=== PATIENT | female | born 1990 | race Caucasian/White ===

== ENCOUNTER 2017-02-22 00:11 | Inpatient (IN) | payer OTHER ==
[~2017-02-22] VITALS: Ht 154.9 cm; Wt 66.9 kg
--- NOTE | 2017-02-22 00:24 | ED PSYCHIATRIC COMPLAINT ---
History of Present Illness General Chief Complaint: Psychiatric Related Complaint Stated Complaint: PSYCH EVAL Source: patient, family, EMS Exam Limitations: no limitations Vital Signs & Intake/Output Vital Signs & Intake/Output Vital Signs Date Time Temp Pulse Resp B/P B/P Pulse O2 O2 Flow FiO2 Mean Ox Delivery Rate 02/23 0839 98.6 103 20 134/86 98 02/23 0622 97.8 98 16 142/88 98 02/23 0143 98.2 100 20 132/65 98 Room Air 02/22 2238 98.5 108 18 148/88 98 Room Air 02/22 2026 98.6 104 20 130/80 97 Room Air 02/22 1825 98.2 80 20 128/87 98 Room Air 02/22 1632 98.0 92 20 136/88 98 Room Air 02/22 1406 97.9 98 18 141/90 98 Room Air 02/22 1207 98.4 100 18 151/81 99 Room Air ED Intake and Output 02/23 0000 02/22 1200 Intake Total Output Total Balance Patient 160 lb Weight Weight Estimated Measurement Method Allergies Coded Allergies: MDX - Amoxicillin (AMOXICILLIN) (11/29/10) MDX - Sulfamethoxazole (From BACTRIM) (11/29/10) MDX - Trimethoprim (From BACTRIM) (11/29/10) Triage Note: TRIAGE: BIBA FROM HOME W/ MOTHER (PT LIVES W/ MOM) REPORTING MED NON-COMPLIANT X1 MONTH (ABILIFY AND LAMICTAL). PATIENT HX BIPOLAR, FRANCISCO, PSYCHOSIS. +AH/VH. WHEN ASKED ABOUT SI/HI, PATIENT REPORTS "NOT ON PURPOSE." PATIENT MOM REPORTS "SHE IS TOTALLY MANIC AND HASNM'T SLEPT OR EATEN IN 3 DAYS." PATIENT VERY ANXIOUS THROUGHOUT TRIAGE, ANSWERING FEW RN QUESTIONS, PARANOID, DISTRACTED, FLIGHT OF IDEAS. SECURITY TO BEDSIDE FOR WANDING. Triage Nurses Notes Reviewed? yes : No Patient currently breastfeeds: No HPI: Patient has been off of her medications for the past 4 weeks. Patient is becoming more manic. Patient was brought in by ambulance after her group social worker decided that she needed evaluation. Patient will answer questions if she is suicidal or homicidal. Patient. Now in left ear during the history. Patient not answering questions. Patient is responding to internal stimuli. (Ravi BOWEN,Sascha Rose) Past History Travel History Traveled to [place] past 21 day No Medical History Any Pertinent Medical History? see below for history Neurological: NONE EENT: NONE Cardiovascular: NONE Respiratory: NONE Gastrointestinal: NONE Hepatic: NONE Renal: NONE Musculoskeletal: NONE Psychiatric: anxiety, bipolar disease, psychosis Endocrine: NONE Blood Disorders: NONE Cancer(s): NONE PORTER SAMPLE CASE/Reproductive: NONE Surgical History Surgical History: non-contributory Psychosocial History What is your primary language Greenlandic Tobacco Use: Refused to answer ETOH Use: 6 Illicit Drug Use: UTD Family History Hx Contributory? No (Ravi BOWEN,Sascha Rose) Review of Systems Review of Systems Constitutional: Reports: see HPI. Neurological/Psychological: Reports: see HPI. (Ravi BOWEN,Sascha Rose) Physical Exam Physical Exam General Appearance: well developed/nourished, alert, anxious, moderate distress Head: atraumatic Eyes: Bilateral: PERRL, EOMI. Ears, Nose, Throat: normal pharynx, normal ENT inspection, hearing grossly normal Neck: normal inspection, supple, full range of motion Respiratory: normal breath sounds, chest non-tender, no respiratory distress, lungs clear Cardiovascular: regular rate/rhythm, normal peripheral pulses Gastrointestinal: normal bowel sounds, soft, non-tender Extremities: normal range of motion Neurological/Psychiatric: no motor/sensory deficits, awake, alert Appearance/Memory/Insight: disheveled, impaired insight Behavoir/Eye Contact/Speech: avoids eye contact, increased rate of speech Thoughts/Hallucinations: RESPONIDIDNG TO INTERNAL STIMULAE SAD PERSONS Done? CRISIS CONSULT OBTAINED (Ravi BOWEN,Sascha Rose) Progress Differential Diagnosis: drug intoxication, drug overdose, drug withdrawal, electrolyte abnormality Plan of Care: Laboratory Tests 02/22/17 1014: Urine Opiates Screen < 100.00, Methadone Screen 61, Barbiturate Screen < 60, Ur Phencyclidine Scrn < 6.00, Amphetamines Screen < 100, U Benzodiazepines Scrn < 85, Urine Cocaine Screen < 50, Urine Cannabis Screen < 5.00 3:15 PM PATIENT SIGNED OUT TO ME BY DR GUTHRIE, PENDING CRISIS BED SEARCH. (Zion BOWEN,Chelo) Hand-Off Endorsed To: Jaylon Guthrie MD Endorsed Time: 0700 Pending: consult (Ravi BOWEN,Sascha Rose) Comments: 02/22/2017 8:53:32 AM patient signed out to me by Dr. Rodrigues at shift private branch exchange service adviser. Patient is resting comfortably at this time. 02/22/2017 3:25:15 PM patient signed out to Dr. Donovan at shift private branch exchange service adviser. 02/23/2017 9:03:19 AM patient signed out to me by Dr. Negrete at shift private branch exchange service adviser. Patient is currently resting comfortably. (Jerri BOWEN,Jaylon Mazariegos) Hand-Off Endorsed To: Colby Negrete MD Endorsed Time: 2300 Pending: other (CRISIS BED PLACEMENT) (Zion BOWEN,Chelo) Hand-Off Endorsed To: Jaylon Guthrie MD Endorsed Time: 0700 Pending: other (Caden BOWEN,Colby Ivey) Departure Departure Disposition: STILL A PATIENT Condition: Stable Clinical Impression Primary Impression: Psychosis Referrals: Velma Roberts MD (PCP/Family) Departure Forms: Customer Survey General Discharge Information (Sascha Rodrigues MD) Departure Forms: Customer Survey General Discharge Information (Sascha Rodrigues MD)
[2017-02-22 01:32] LABS: ABSOLUTE BASOPHIL COUNT 0 /CUMM (0.0-0.2); ABSOLUTE EOSINOPHIL COUNT 0.1 /CUMM (0.0-0.7); ABSOLUTE GRANULOCYTE CT 11.3 /CUMM (1.4-6.5); ABSOLUTE LYMPH COUNT 2.2 /CUMM (1.2-3.4); ABSOLUTE MONOCYTE COUNT 0.7 /CUMM (0.10-0.60); BASOPHIL % 0.2 % (0.0-2.0); EOSINOPHIL % 0.5 % (0-5); GRANULOCYTE % 79.3 % (42.2-75.2); MEAN CORPUSCULAR HGB 28.6 PG (27.0-31.0); MEAN CORPUSCULAR HGB CONC 33.9 G/DL (33.0-37.0); MEAN CORPUSCULAR VOLUME 84.4 FL (81.0-99.0); MEAN PLATELET VOLUME 7.1 FL (7.4-10.4); PLATELET COUNT 349 /CUMM (130-400); RBC DISTRIBUTION WIDTH 12.2 % (11.5-14.5); RED BLOOD CELL CT 4.97 /CUMM (4.20-5.40); WHITE BLOOD CELL COUNT 14.3 /CUMM (4.8-10.8)
[2017-02-22 01:52] LABS: LITHIUM < 0.2 mmol/L (0.6-1.2)
--- NOTE | 2017-02-22 13:15 | ED PSYCH CRISIS CONSULTATION ---
Crisis Consult Basic Assessment Date of Consult: 02/22/17 Responsible Person/Accompanied By: NIGHTMAN Emergency Transportation paper Insurance Authorization: Insurance #1: Insurance name: [facility] Phone number: Policy number: [id number] Group [id number] Authorization number: ED Provider: Patient's ED Provider: Ravi BOWEN,Sascha Rose Primary Care Physician: Patient's PCP: Velma Roberts MD PCP's Current Psychiatrist: None Chief Complaint: Psychiatric Related Complaint Patient's Quote: " Oh boy, alot of stuff." Present Illness: The patient is a 27 year single female presenting to the ED on an [facility] Emergency Transportation Certificate, after stopping her medications and decompensating. The patient presents disheveled, unkempt, with mood lability and incongruent affect. The patient made inappropriate facial expressions throughout the evaluation and made sounds that were unintelligible. She appeared to be a poor historian and gave minimal answers to questions asked. The patient continually repeated that she was scared and wanted to be safe, however was not able to articulate what she was scared of. She denied having any auditory or visual hallucinations, however did appear to be responding to internal stimuli and laughing inappropriately at times. She then went on to say "she just inherently knows things," however does not elaborate on what she knows. She stated that she believes that her mother is the devil and that she talks with God and that God talks back to her. She states that God tells her to do things, however "it is never anything bad, God is trying to help everyone." She denies any current thoughts to hurt herself or anyone else. She talks about feeling out of control and that she believes she is possessed at times, noting "holograms are real." She states that she is not in any treatment and is not on any medications, because at [facility] they helped her to manage symptoms without medications. She denies any current drug or alcohol abuse, however does admit to a history of using Cocaine and Marijuana. She has had multiple treatment episodes, including inpatient and outpatient. She was last in OP treatment at [place] in Summer / fall and was admitted to [facility] in January of 2017. She does not know what would be helpful and states "I'm tired, I'm sacred and I don't know what to do." JOSETTE spoke to Nelly Guadarrama ([phone]) from [facility] for collateral information. Nelly reports that she has been working with the patient for awhile now and is familiar with her case. Nelly states that the patient has a differential of Bipolar with Psychosis vs. a Delusional Disorder. Nelly reports that the patient does very well when she is on her medications, however frequently stops them and ends up being admitted to the hospital. Nelly notes that she has been admitted to [place] and [facility] (3-4 times), in the past. Nelly reports that the patient has never made any suicidal comments or attempts, as far as she is aware. Nelly reports that the patient was admitted to [facility] in January 2017 and had a positive toxicology screen for Cocaine , however that was the first time, to her knowledge. A message was left for the patients mother, Christy George ([phone]) and SW will await a call back. Patient's Address: [address] [place] [address] Other Phone Number: Who Do You Live With? Mother Family/Informants Interviewed: OP therapist Nelly Sampson Message left for her mother, Christy George ([phone]) Allergies - Coded Allergies: MDX - Amoxicillin (AMOXICILLIN) (11/29/10) MDX - Sulfamethoxazole (From BACTRIM) (11/29/10) MDX - Trimethoprim (From BACTRIM) (11/29/10) Laboratory Results: Laboratory Tests 02/22/17 1014: Urine Opiates Screen < 100.00, Methadone Screen 61, Barbiturate Screen < 60, Ur Phencyclidine Scrn < 6.00, Amphetamines Screen < 100, U Benzodiazepines Scrn < 85, Urine Cocaine Screen < 50, Urine Cannabis Screen < 5.00 02/22/17 0120: Anion Gap 17 H, Estimated GFR > 60, BUN/Creatinine Ratio 36.7 H, Glucose 94, Calcium 9.7, Total Bilirubin 0.8, AST 20, ALT 37, Alkaline Phosphatase 61, Total Protein 6.8, Albumin 4.3, Globulin 2.5, Albumin/Globulin Ratio 1.7, Total Beta HCG NEGATIVE, CBC w Diff NO MAN DIFF REQ, RBC 4.97, MCV 84.4, MCH 28.6, RDW 12.2 , MPV 7.1 L, Gran % 79.3 H, Lymphocytes % 15.1 L, Monocytes % 4.9, Eosinophils % 0.5, Basophils % 0.2, Absolute Granulocytes 11.3 H, Absolute Lymphocytes 2.2, Absolute Monocytes 0.7 H, Absolute Eosinophils 0.1, Absolute Basophils 0, PUBS MCHC 33.9, [place] < 0.2 L, Serum Alcohol < 10.0 Past History Past Medical History Neurological: NONE EENT: NONE Cardiovascular: NONE Respiratory: NONE Gastrointestinal: NONE Hepatic: NONE Renal: NONE Musculoskeletal: NONE Psychiatric: anxiety, bipolar disease, psychosis Endocrine: NONE Blood Disorders: NONE Cancer(s): NONE LITERARY WRITER/Reproductive: NONE Past Surgical History Surgical History: non-contributory Psychosocial History Strengths/Capabilities: The patient resides with her mother and apparently does do very well when she is on her medications. Physical Limitations (Interventions): None noted Psychiatric Treatment History Psych Treatment Psychiatric Treatment Yes Inpatient Treatment Yes Outpatient Treatment Yes Location of Treatment [facility] IOP and OP Reason for Treatment Bipolar Disorder with Psychosis vs. Delusional Disorder Dates of [facility] Summer / Fall 2016, Last IP at [facility] January 2017 Response to Treatment The patient frequently stops her medications and requires hospitalization. Diagnosis by History: Bipolar Disorder with Psychosis Vs. Delusional Disorder Substance Use/Abuse History Drug Use/Abuse Substances Used/Abused Yes Substance Used/Abused Cocaine First Use Unclear Last Used January 2017 How much used/taken Unclear How often Unclear For how long Unclear Route of use Unclear Substance Abuse Treatment Substance Abuse Treatment Past Substance Abuse TX Yes Inpatient Treatment No Outpatient Treatment Yes Location of Treatment [facility] OP Reason for Treatment Marijuana use Dates of Treatment Last IOP / OP September 2016 Response to Treatment Unclear Comments: N/A Current Mental Status Mental Status Orientation: Confused Affect: Inappropriate, Labile Speech: Incoherent (at times), Mumbled Neuro-vegetative: Appetite Decreased, Sleep Disturbance Appearance Appearance- Dress/Hygiene: The patient was disheveled, unkempt, with inappropriate facial expressions and making unintelligible sounds. Behaviors Thought Process: Disorganized, Flight of Ideas, Irrational, Loose Association, Thought Blocking Thought Content: Delusions, Ideas of Reference, Sikhism, The patient denies any current auditory or visual hallucinations, however states that "she inherently knows things." She reports rastafarian delusions, noting that she talks to God and he talks back. She believes that her mother is the devil. She reports that she does feel out of control and possessed at times. Memory: Impaired (Poor Historian- Psychosis) Insight: Fair SI/HI Risk Assessment Past Suicidal Ideation/Attempts No Current Suicidal Ideation/Att No Past Homicidal Ideation/Att: No Current Homicidal Ideation/Attempts No Degree of Intent: None Danger To: N/A Gravely Disabled: Delusions / psychosis Risk Factors: high anxiety/distress, SA/MH hospitalized, substance abuse Lethality Ratin PTSD Checklist PTSD Done? pt unable to participate (Secondary to Psychosis ) ED Management Sitter: Yes Restraints: No DSM5/PS Stressors/Medical Prob Diagnosis' (DSM 5, Stressors, Medical): F29 Unspecified Schizophrenia Spectrum and other Psychotic Disorder Current GAF: 20 Comments: N/A Departure Disposition Psych Medical Clearance Date: 02/22/17 Medically Cleared at: 1200 Time Started: 1230 Time Ended: 1330 Psychiatrist Consulted: Kae Beltran MD Date Disposition Established: 02/22/17 Plan for Disposition - Modality: Bed Search Facility: To be determined Contact: N/A Telephone: N/A Rationale for Disposition: The patient presents on an [facility] Transportation paper with worsening symptoms of psychosis. The patient presents with rastafarian delusions, appears to be responding to internal stimuli, has inappropriate affect and is making unintelligible sounds. She is paranoid and believes that she is possessed at times. Case discussed with Dr. Beltran and she believes that the patient is gravely disabled and in need of an inpatient hospitalization at this time. There are no beds on [facility] and therefore a bed search will be started. Type of IP Admission: PEC Additional Instructions: N/A Referrals Alejandra BOWEN,Velma (PCP/Family)
--- NOTE | 2017-02-22 17:27 | ED PSY CRISIS COLLATERAL NOTE ---
Collateral Note Collateral Note Family/Inform/Deandre Contacts: This screenplay writer spoke with the patient's mother (Christy) and brother (Darwin), with whom she lives with ([phone]). Patient's mother stated that the patient has Bipolar and was diagnosed with Anxiety D/O at age 19. She stated that the patient has been med noncompliant due to her medications making her tired and being tired of taking meds. She stated that the patient was recently at [facility] for about 1 and 1/2 weeks (January 2017), wasn't taking her PO meds and signed herself out AMA. Since leaving [facility], the patient has stopped drinking, smoking and taking her meds. The patient's mother noted the patient is affraid of hospitals and has been trying to get off meds for years, believing she doesn't need them and indicating she feels fine/good while not on them. Patient's mother also said that when the patient is psychotic, she becomes very delusional. Patient's mother noticed that over the past month, the patient has been declining and isolating herself from others, while two of her close friends have recently been distancing themselves from her due to her manic behavior. Patient's mother indicated that she thinks the patient blames her for making the patient be in a "zombie-like state" for making her take her meds over the years. The patient's mother also said that the patient lies to her and that recently, she told the patient that she doesn't trust her and explained why (i.e., pt. says she'll take meds but she won't, etc.). As a result, this has been a breaking point in their relationship, even though the two have had an up and down relationship for the past 10 years. She continued to note that the patient hates her stating, "I'm pretty sure she [pt.] thinks I'm the devil himself." Regarding her father, he is in and out of the patient's life and typically only there for the good times. He is in denial of the patient's mental health matters and won't allow her to live with him (parents don't live together). According to the patient's mother, she feels the patient won't "flourish" at their home; however, her brother lives there too and he is the only person the patient trusts. She also stated that the patient has had vipin relationships with her past boyfriends and her most recent breakup occuring this past summer (2016), after dating her almost 40 y.o. boyfriend, who has psych and alcohol issues, for a year and a half. Patient's mother mentioned that she is still in contact with this ex-boyfriend and informend him that the patient is currently in ED. She also noted that the patient has never been SI or made an attempt but when the patient is off her meds, she neglects herself and puts herself in dangerous situations. Patient's brother mentioned that the patient "thinks there's something wrong with our [their] mom," she doesn't trust hospitals and that her delusions are typically paranoia based. He stated that during the patient's last hospitalization, she believed the doctors were testing drugs on her.
--- NOTE | 2017-02-23 15:54 | IP CRISIS DIAG ASSESS PSYCH ---
Diagnostic Assessment Basic Assessment Insurance Authorization: Insurance #1: Insurance name: [facility] Phone number: Policy number: [id number] Group number: [id number] Authorization number: Primary Care Physician: Patient's PCP: Velma Roberts MD PCP's Patient's Quote: " Oh boy, alot of stuff." Present Illness: The patient is a 27 year single female presenting to the ED on an [facility] Emergency Transportation Certificate, after stopping her medications and decompensating. The patient presents disheveled, unkempt, with mood lability and incongruent affect. The patient made inappropriate facial expressions throughout the evaluation and made sounds that were unintelligible. She appeared to be a poor historian and gave minimal answers to questions asked. The patient continually repeated that she was scared and wanted to be safe, however was not able to articulate what she was scared of. She denied having any auditory or visual hallucinations, however did appear to be responding to internal stimuli and laughing inappropriately at times. She then went on to say "she just inherently knows things," however does not elaborate on what she knows. She stated that she believes that her mother is the devil and that she talks with God and that God talks back to her. She states that God tells her to do things, however "it is never anything bad, God is trying to help everyone." She denies any current thoughts to hurt herself or anyone else. She talks about feeling out of control and that she believes she is possessed at times, noting "holograms are real." She states that she is not in any treatment and is not on any medications, because at [facility] they helped her to manage symptoms without medications. She denies any current drug or alcohol abuse, however does admit to a history of using Cocaine and Marijuana. She has had multiple treatment episodes, including inpatient and outpatient. She was last in OP treatment at [facility] in Summer / fall and was admitted to [facility] in January of 2017. She does not know what would be helpful and states "I'm tired, I'm sacred and I don't know what to do." spoke to Nelly Guadarrama ([phone]) from [facility] for collateral information. Nelly reports that she has been working with the patient for awhile now and is familiar with her case. Nelly states that the patient has a differential of Bipolar with Psychosis vs. a Delusional Disorder. Nelly reports that the patient does very well when she is on her medications, however frequently stops them and ends up being admitted to the hospital. Nelly notes that she has been admitted to [facility] and [facility] (3-4 times), in the past. Nelly reports that the patient has never made any suicidal comments or attempts, as far as she is aware. Nelly reports that the patient was admitted to [facility] in January 2017 and had a positive toxicology screen for Cocaine , however that was the first time, to her knowledge. Patient's Address: [address] [place] [address] Other Phone Number: Who Do You Live With? Mother Marital Status: single Do You Have Children? No Primary Language? Swedish Language(s) Spoken At Home: Swedish Family/Informants Interviewed: OP therapist Nelly Sampson Message left for her mother, Christy George ([phone]) Allergies - Coded Allergies: amoxicillin (UNKNOWN 02/23/17) sulfamethoxazole (From BACTRIM) (UNKNOWN 02/23/17) trimethoprim (From BACTRIM) (UNKNOWN 02/23/17) Past History Past Surgical History Surgical History none Abuse/Trauma History Trauma History/Current Trauma: Denies (unknown) Legal History Current Legal Status: unknown. Psychosocial History Strengths/Capabilities: The patient resides with her mother and apparently does do very well when she is on her medications. Physical Limitations (Interventions): None noted Psychiatric Treatment History Psych Treatment Psychiatric Treatment Yes Inpatient Treatment Yes Outpatient Treatment Yes Location of Treatment [facility] IOP and OP Reason for Treatment Bipolar Disorder with Psychosis vs. Delusional Disorder Dates of Treatment ast OP in Summer / Fall 2016, Last IP at [facility] January 2017 Response to Treatment The patient frequently stops her medications and requires hospitalization. Diagnosis by History: Bipolar Disorder with Psychosis Vs. Delusional Disorder Risk Factors: high anxiety/distress, SA/MH hospitalized, substance abuse Substance Use/Abuse History Drug Use/Abuse minimum 12mo Hx Substances Used/Abused Yes Substance Used/Abused Cocaine First Use Unclear Last Used January 2017 How much used/taken Unclear How often Unclear For how long Unclear Route of use Unclear Substance Abuse Treatment Substance Abuse Treatment Past Substance Abuse [place] Yes Inpatient Treatment No Outpatient Treatment Yes Location of Treatment [facility] Reason for Treatment Marijuana use Dates of Treatment Last IOP / OP September 2016 Response to Treatment Unclear Education History Highest Level of Education: not sure Current Mental Status Mental Status Orientation: Confused Affect: Inappropriate, Labile Speech: Incoherent (at times), Mumbled Neuro-vegetative: Appetite Decreased, Sleep Disturbance Appearance Appearance- Dress/Hygiene: The patient was disheveled, unkempt, with inappropriate facial expressions and making unintelligible sounds. Behaviors Thought Process: Disorganized, Flight of Ideas, Irrational, Loose Association, Thought Blocking Thought Content: Delusions, Ideas of Reference, Anabaptism, The patient denies any current auditory or visual hallucinations, however states that "she inherently knows things." She reports buddhist delusions, noting that she talks to God and he talks back. She believes that her mother is the devil. She reports that she does feel out of control and possessed at times. Memory: Impaired (Poor Historian- Psychosis) Insight: Fair SI/HI Risk Assessment - Minimum 6mo History- Past Suicidal Ideation/Attempts No Current Suicidal Ideation/Att No Past Homicidal Ideation/Att: No Current Homicidal Ideation/Attempts No Degree of Intent: None Danger To: N/A Gravely Disabled: Delusions / psychosis Risk Factors: high anxiety/distress, SA/MH hospitalized, substance abuse Lethality Ratin Needs/Init TX Plan/Goals: Decrease psychotic symptoms and medication review/management. AUDIT-C Questionnaire: AUDIT-C Questionnaire: Response Value ETOH use in the past year Never 0 # drinks typical/day Doesn't Drink 0 6 or > drinks per occasion Never 0 Total 0 DSM5/PS Stressors/Medical Prob Diagnosis' (DSM 5, Stressors, Medical): F29 Unspecified Schizophrenia Spectrum and other Psychotic Disorder Current GAF: 20 Comments: N/A
[2017-02-23 19:41] VITALS: BP 151/91
--- NOTE | 2017-02-24 12:41 | SOCIAL WORKER PROG NOTE PSYCH ---
Social Work Progress Note Progress Note Clarissa was agitated, swearing, and yelling this morning. Refuses po medication. Security was called and nursing administered IM medication. Just after she started skipping in an agitated state around the unit. Security and nursing were able to de-escalate her. A short time later she was found sleeping in her room. She has been sleeping all afternoon. She was put on a one to one. Received a message from the [facility] medical review specialist that Clarissa's Mother was looking to speak with someone. Her call back is [phone]. I checked the chart and there is no release at this time.
--- NOTE | 2017-02-24 13:45 | Event Note ---
Event Note Event Note: Came down to see the patient for history and physical. Per nursing staff, patient was very psychotic and would not be able to provide history or exam. Told the staff to please call us back once patient is in a better condition to provide history and exam.
--- NOTE | 2017-02-24 14:05 | CPS PROVIDER INIT ASMT PSYCH ---
Psychiatric Admission House Designer's Note Reviewed: Yes Patient Seen and Examined: Yes Identifying Information: 27-year-old single white female who presented to the emergency department on an medical social worker emergency transportation certificate. Chief Complaint: The patient was incoherent and unable to provide the chief complaint Reaction to Hospitalization: The patient was agitated about hospitalization History of Present Illness Onset of Illness: The patient was brought in to [facility]'s emergency department on medical social worker emergency transportation certificate because she started decompensating after stopping taking her medication. The patient was described in the emergency department as disheveled and unkempt labile making inappropriate facial expression throughout the evaluation as well as unintelligible sounds. Patient also was telling the coal sample tester in the crisis area that she was feeling scared and wanting to be safe but was not able to our to articulate any further details. She was described as possibly responding to internal stimuli and laughing inappropriately and that she "just inherently knows things." She reportedly told the sandblast carver that she believed her that her mother is the devil and that she talks to God and that God talks back to her and tells her to do things she added that "it's never anything bad, God is trying to help everyone." Circumstances Leading to Admission: Psychotic decompensation Problem(s) Justifying Need for Admission: Acute psychosis Past Psychiatric History Past Diagnosis(es)- if any: Psychotic disorder not otherwise specified rule out bipolar disorder Past Precipitating Factors- if any: Nonadherence to medications - Include inpatient and outpatient treatment Treatment History: And reportedly had been to [facility] inpatient as well as [facility] inpatient she also reportedly did [facility]'s intensive outpatient program as well as outpatient psychiatry the patient reportedly was last admitted to [facility] in January 2017 History of Suicide Attempts or Gestures The patient denied history of suicide attempts Substance Abuse History: The patient has history of cannabis use the patient also has history of cocaine use in the past However this time around her urine toxicology was negative for substances of use Allergies: Coded Allergies: amoxicillin (UNKNOWN 02/23/17) sulfamethoxazole (From BACTRIM) (UNKNOWN 02/23/17) trimethoprim (From BACTRIM) (UNKNOWN 02/23/17) Home Med List: none - Include any medical condition(s) that may - impact the patient's recovery/remission Past History Medical History Neurological: NONE EENT: NONE Cardiovascular: NONE Respiratory: NONE Gastrointestinal: NONE Hepatic: NONE Renal: NONE Musculoskeletal: NONE Psychiatric: anxiety, bipolar disease, psychosis Endocrine: NONE Blood Disorders: NONE Cancer(s): NONE CASING OPERATOR/Reproductive: NONE History of MRSA: No History of VRE: No History of CDIFF: No Isolation History: Standard Surgical History Surgical History: none Psychiatric Family/Social Hx Family History Psychiatric Illness: unable to provide info Substance Use: pt. unable to answer Suicides: unable to provide info Social History Living Situation: unknown Significant Relationships (family/friends): mother Education: unknown Vocation/Occupation: unable to provide info Legal: unable to provide info Healthly Behaviors Screening Tobacco Screening Tobacco Use from ED Docu: Refused to answer - If tobacco counseling indicated - the following topics are required. - #1 Recognizing dangerous situations. - #2 Coping Skills. - #3 Basic information about quitting. Status of Tobacco Cessation Counseling: Counseling Refused Cessation Med Status Nicotine Gum Ordered Alcohol Screening - ETOH screen POS if BAL >=80 or Audit-C>= M4/F3 Audit-C Score from Diag Assess: 0 Blood Alcohol Level: Laboratory Tests 02/22 0120 Toxicology Serum Alcohol (<10 MG/DL) < 10.0 Alcohol Use Screening Results: Neg per Audit C &/or BAL - If ETOH counseling indicated - the following topics are required. - #1 Express concern about the patient's - drinking at unhealthy levels, include informing - of national norms for moderate drinking: - men <= 14 drinks/week, max 4 drinks/occasion - women <= 7 drinks/week, max 3 drinks/occasion - #2 Providing feedback, including linking alcohol to - negative physical effects (liver injury, hypertension) - negative emotional effects (relationship problems and - depression) - negative occupational consequences (reduced work - performance) - #3 Advising the patient to abstain from alcohol or - to drink below national norms for moderate drinking - (as listed above). Status of ETOH Use Counseling: N/A B/C NO ETOH Use Metabolic Screening - Screen if on a Neuroleptic Medication - Metabolic screening should include: - Blood Pressure, BMI, Glucose or Hgb A1c, & a - Lipid profile from within the past 365 days. Metabolic Screening ([X]) Not Applicable, patient not on a neuroleptic. OR () Patient on a neuroleptic(s) . Enter below results for Hemoglobin A1C, and lipid panel if obtained during the last 365 days. BMI: 27.800 Blood Pressure: 130/78 Laboratory Results From [facility] EHR (If applicable): Exam and Plan Mental Status Examination Ambulation Status: mobile freely Appearance: unremarkable Attitude towards examiner: hostile Psychomotor activity: increased Behavior: disorganized Quality of speech: loud Affect: agitated Mood: unknown Suicidal Ideation: unknown Homicidal Ideation: unknown Hallucinations: most likely Paranoid/Delusional Material: disorganized/unknown Difficulties with thought organization: yes Insight: poor Judgment: poor Orientation: unable to answer Cognition: impaired Memory Function: unknown Estimate of intellectual functioning: average Assets/Strengths Patient Identified Assets/Strengths: supportive mother Impression/Plan Impression and Plan: 27-year-old single white female acutely psychotic - Include all active medical diagnosis that require tx DSM 5 Diagnosis(es): psychotic disorder - Initial Tx Plan for Active Psych & Medical Conditions Treatment Plan: inpatient psych IM haldol, Ativan and cogentin - Factors that would help patient function - in a less restrictive setting. Factors: medication adherence
[2017-02-24 17:13] VITALS: BP 130/78
--- NOTE | 2017-02-25 00:29 | Admission Certification ---
Admission Certification Certification Statement - As attending physician, I certify that at the time of - admission, based on clinical presentation, severity of - symptoms, need for further diagnostic testing and - therapeutic interventions, and risk of adverse outcomes - without in-hospital treatment, in my clinical assessment, - this patient requires an acute hospital stay for a minimum - of two nights or longer. I have also considered psychsocial - factors such as support system, advanced age, financial - issues, cognitive issues, and failed out-patient treatments, - past re-admission history, safety of patient, and lack of - compliance as applicable. Specific rationale supporting this admission is: Psychosis
--- NOTE | 2017-02-25 00:29 | History & Physical ---
General Information and HPI MD Statement: I have seen and personally examined CRISTIN LIU and documented this H&P. The patient is a 27 year old F who presented with a patient stated chief complaint of [psychosis]. Source of Information: patient Exam Limitations: no limitations History of Present Illness: 27 yo F with no medical problems is admitted to Inpatient psychiatry for psychosis, og. She has underlying bipolar disorder and anxiety. She stopped taking all her medications for the past 1 month and has been decompensating. Please refer to Social work H and P for full details. On my evaluation, she denied any symptoms of chest pain, palpitations, dyspnea, GI or symptoms. She reports a h/o cocaine and marijuana use but has not been using it for over 1 month. Similarly she has stopped smoking and drinking for the past 1 month. When asked, how much she used to in the past, she does not tell me. Allergies/Medications Allergies: Coded Allergies: amoxicillin (UNKNOWN 02/23/17) sulfamethoxazole (From BACTRIM) (UNKNOWN 02/23/17) trimethoprim (From BACTRIM) (UNKNOWN 02/23/17) Compliance With Home Meds: POOR Past History Travel History Traveled to [place] past 21 day No Medical History Neurological: NONE EENT: NONE Cardiovascular: NONE Respiratory: NONE Gastrointestinal: NONE Hepatic: NONE Renal: NONE Musculoskeletal: NONE Psychiatric: anxiety, bipolar disease, psychosis Endocrine: NONE Blood Disorders: NONE Cancer(s): NONE GRAB HOOKER/Reproductive: NONE History of MRSA: No History of VRE: No History of CDIFF: No Isolation History: Standard Surgical History Surgical History: none, non-contributory (Denies any surgeries) Past Family/Social History Family History Relations & Conditions if any Maternal grandfather (Diabetes, CAD.). Maternal grandmother (Stroke). Psychosocial History Where do you live? Home Who Do You Live With? parent Services at Home: None Primary Language: Bhutanese Smoking Status: Former Smoker (quit 1 month ago) ETOH Use: denies use Illicit Drug Use: cocaine (quit 1 month ago), marijuana (quit 1 month ago) Functional Ability ADLs Independent: dressing, eating, toileting, bathing. Ambulation: independent Employment History Employment Unemployed Review of Systems Review of Systems Constitutional: Denies: chills, fever, weakness. Cardiovascular: Denies: chest pain, palpitations, syncope. Respiratory: Denies: cough, hemoptysis, orthopnea, short of breath. GI: Denies: abdominal pain, diarrhea, nausea, vomiting. Genitourinary: Denies: discharge, dysuria, frequency. Musculoskeletal: Denies: back pain, joint pain. Neurological/Psychological: Reports: see HPI. All Other Systems: Reviewed and Negative Exam & Diagnostic Data Last 24 Hrs of Vital Signs/I&O Vital Signs Date Time Temp Pulse Resp B/P B/P Pulse O2 O2 Flow FiO2 Mean Ox Delivery Rate 02/24 1713 108 130/78 Physical Exam General Appearance Alert, Oriented X3, Cooperative, No Acute Distress, Flat affect Skin No Rashes, No Breakdown, No Significant Lesion HEENT Atraumatic, PERRLA, EOMI, Mucous Membr. moist/pink Neck Supple Cardiovascular Regular Rate, Normal S1, Normal S2, No Murmurs Lungs Clear to Auscultation, Normal Air Movement Abdomen Normal Bowel Sounds, Soft, No Tenderness Neurological Exam Findings: Normal Gait, Normal Speech, Sensation Intact, Cranial Nerves 3 -12 NL, Reflexes 2+ Cranial Nerves II through XII: Intact Extremities No Edema, Normal Pulses, No Tenderness/Swelling Vascular Normal Pulses, Pulses Symmetrical Last 24 Hrs of Labs/José Miguel: Laboratory Tests 02/22 02/22 1014 0120 Chemistry Sodium (137 - 145 mmol/L) 141 Potassium (3.5 - 5.1 mmol/L) 3.7 Chloride (98 - 107 mmol/L) 104 Carbon Dioxide (22 - 30 mmol/L) 20 L Anion Gap (5 - 16) 17 H BUN (7 - 17 mg/dL) 22 H Creatinine (0.5 - 1.0 mg/dL) 0.6 Estimated GFR (>60 ml/min) > 60 BUN/Creatinine Ratio (7 - 25 %) 36.7 H Glucose (65 - 99 mg/dL) 94 Hemoglobin A1c (4.2 - 5.8 %) 4.8 Calcium (8.4 - 10.2 mg/dL) 9.7 Total Bilirubin (0.2 - 1.3 mg/dL) 0.8 AST (14 - 36 U/L) 20 ALT (9 - 52 U/L) 37 Alkaline Phosphatase (<127 U/L) 61 Total Protein (6.3 - 8.2 g/dL) 6.8 Albumin (3.5 - 5.0 g/dL) 4.3 Globulin (1.9 - 4.2 gm/dL) 2.5 Albumin/Globulin Ratio (1.1 - 2.2 %) 1.7 Triglycerides (<150 mg/dL) 48 Cholesterol (<200 MG/DL) 107 LDL Cholesterol, Calc (65 - 129 mg/dL) 61 L HDL Cholesterol (40 - 60 mg/dL) 37 L Cholesterol/HDL Ratio (0.00 - 4.23 %) 3 TSH &T3 &Free T4 Intrp (0.270 - 4.20 uIU/mL) 1.950 Total Beta HCG (NEGATIVE) NEGATIVE Hematology CBC w Diff NO MAN DIFF REQ WBC (4.8 - 10.8 /CUMM) 14.3 H RBC (4.20 - 5.40 /CUMM) 4.97 Hgb (12.0 - 16.0 G/DL) 14.2 Hct (37 - 47 %) 42.0 MCV (81.0 - 99.0 FL) 84.4 MCH (27.0 - 31.0 PG) 28.6 RDW (11.5 - 14.5 %) 12.2 Plt Count (130 - 400 /CUMM) 349 MPV (7.4 - 10.4 FL) 7.1 L Gran % (42.2 - 75.2 %) 79.3 H Lymphocytes % (20.5 - 51.1 %) 15.1 L Monocytes % (1.7 - 9.3 %) 4.9 Eosinophils % (0 - 5 %) 0.5 Basophils % (0.0 - 2.0 %) 0.2 Absolute Granulocytes (1.4 - 6.5 /CUMM) 11.3 H Absolute Lymphocytes (1.2 - 3.4 /CUMM) 2.2 Absolute Monocytes (0.10 - 0.60 /CUMM) 0.7 H Absolute Eosinophils (0.0 - 0.7 /CUMM) 0.1 Absolute Basophils (0.0 - 0.2 /CUMM) 0 PUBS MCHC (33.0 - 37.0 G/DL) 33.9 Toxicology Urine Opiates Screen (>2000 NG/ML) < 100.00 Methadone Screen (>300 NG/ML) 61 Barbiturate Screen (>200 NG/ML) < 60 Ur Phencyclidine Scrn (>25 NG/ML) < 6.00 Amphetamines Screen (>1000 NG/ML) < 100 U Benzodiazepines Scrn (>200 NG/ML) < 85 [place] (0.6 - 1.2 mmol/L) < 0.2 L Urine Cocaine Screen (>300 NG/ML) < 50 Urine Cannabis Screen (>50 NG/ML) < 5.00 Serum Alcohol (<10 MG/DL) < 10.0 Diagnostic Data EKG Results -- CXR Results -- Assessment/Plan Assessment: 27 yo F with h/o anxiety, bipolar disorder, but no medical problems, is admitted to Inpatient psychiatry for psychosis, og. Continue management of psychosis as per primary team. Please re-consult medicine for any issues. As Ranked By This Provider Problem List: 1. Psychosis Miscellaneous Miscellaneous Documentation Attending Case Discussed With: Rossy Mandujano MD Primary Care Physician: Alejandra BOWEN,[facility] Patient sees these Specialists -- Level of Patient Care: VINCE Mott MD Review Statement Attending Statement Attending MD Statement: examined this patient, discuss w/resident/PA/DIE OPERATOR
[2017-02-25 07:40] VITALS: BP 142/87
--- NOTE | 2017-02-25 12:03 | CP SOUTH PROGRESS NOTE PSYCH ---
Psych (Inpt) Progress Note Progress Note Background: Clarissa is a 27-year-old single White female who was admitted to [facility] in the evening hours of Tuesday02/23/2017 on a PEC. She was seen by the psychiatrist on [facility] the morning of 02/24/2017. She was incoherent, unable to provide a rational account of her presentation, then agitated, screaming and flailing her arms. Security was called in and patient was given Haldol 5mg + Ativan 2 mg + Cogentin IM Reportedly, she was disorganized with delusions and audio hallucinations ( including Gods voice). Mental Status Examination: The patient was awake and seemed alert this morning. She was sitting in the front of the fish tank in front of the nursing station. She continues to be irritable, she refuses to be interviewed. She was not as agitated as yesterday. She remains hostile but not scary like yesterday. She exhibits increased psychomotor activity, less disorganized behavior ( relatively speaking, of course). She was not loud with me today, irritable in her affect, Clarissa would not answer my inquiries about mood, suicidal ideation, homicidal ideation, or hallucinations I cant comment on her thought process or whether there are delusions or not (as she refuses to engage in conversation) Seems to have poor insight, and impaired judgment I am also unable to comment on her orientation, cognitive abilities or memory Impression: A 27-year-old single White female who was admitted to [facility] on Tuesday night ( 2017) in what was reportedly-an acute psychotic state. She remains uncooperative and irritable and un-engaged Diagnostic impression: A psychotic disorder, probably Schizo-Bipolar Treatment Plan Update: Continue inpatient psychiatric care Continue constant observation until nursing staff deems unnecessary I ordered haloperidol 2 mg twice daily as shes likely to need a depot injections (if she ever agrees to that) Nursing care + education Social work services Group Therapy, Activity/milieu therapy Psychiatrist shall evaluate Clarissa mental state and medications daily
--- NOTE | 2017-02-25 12:59 | SOCIAL WORKER PROG NOTE PSYCH ---
Social Work Progress Note Progress Note Introduced myself to Clarissa as her child welfare social worker and asked if she would talk to me? She refused. She remains on a one to one. Spent time pacing and standing at the nurses station. She did meet with the car rental clerk to complete her social hx. She was in bed sleeping around 4:30pm.
--- NOTE | 2017-02-25 15:30 | SOCIAL WORKER SOCIAL HX PSYCH ---
Social History Basic Assessment Insurance Authorization: Insurance #1: Insurance name: [facility] Phone number: Policy number: [id number] Group number: [id number] Authorization number: [id number] Source of Income/Entitlements: employment Primary Care Physician: Patient's PCP: Velma Roberts MD PCP's Present Problem: The patient is a 27 year single female presenting to the ED on an [facility] Emergency Transportation Certificate, after stopping her medications and decompensating. The patient presents disheveled, unkempt, with mood lability and incongruent affect. The patient made inappropriate facial expressions throughout the evaluation and made sounds that were unintelligible. She appeared to be a poor historian and gave minimal answers to questions asked. The patient continually repeated that she was scared and wanted to be safe, however was not able to articulate what she was scared of. She denied having any auditory or visual hallucinations, however did appear to be responding to internal stimuli and laughing inappropriately at times. She then went on to say "she just inherently knows things," however does not elaborate on what she knows. She stated that she believes that her mother is the devil and that she talks with God and that God talks back to her. She states that God tells her to do things, however "it is never anything bad, God is trying to help everyone." She denies any current thoughts to hurt herself or anyone else. She talks about feeling out of control and that she believes she is possessed at times, noting "holograms are real." She states that she is not in any treatment and is not on any medications, because at [facility] they helped her to manage symptoms without medications. She denies any current drug or alcohol abuse, however does admit to a history of using Cocaine and Marijuana. She has had multiple treatment episodes, including inpatient and outpatient. She was last in OP treatment at [facility] in Summer / fall and was admitted to [facility] in January of 2017. She does not know what would be helpful and states "I'm tired, I'm sacred and I don't know what to do." spoke to Nelly Guadarrama ([phone]) from [facility] for collateral information. Nelly reports that she has been working with the patient for awhile now and is familiar with her case. Nelly states that the patient has a differential of Bipolar with Psychosis vs. a Delusional Disorder. Nelly reports that the patient does very well when she is on her medications, however frequently stops them and ends up being admitted to the hospital. Nelly notes that she has been admitted to [facility] and [facility] (3-4 times), in the past. Nelly reports that the patient has never made any suicidal comments or attempts, as far as she is aware. Nelly reports that the patient was admitted to [facility] in January 2017 and had a positive toxicology screen for Cocaine , however that was the first time, to her knowledge. Primary Language? Estonian Language(s) Spoken At Home: Estonian Living Situation Other Living Arrangement: relative's/guardian's kamron Feel Safe Where You Are Living Yes Feel Safe in Relationships? Yes Allergies - Coded Allergies: amoxicillin (UNKNOWN 02/23/17) sulfamethoxazole (From [facility]IM) (UNKNOWN 02/23/17) trimethoprim (From [facility]) (UNKNOWN 02/23/17) Consequences of Psych Med Use: pt currently resistant to medications Past History Past Medical History Neurological: NONE EENT: NONE Cardiovascular: NONE Respiratory: NONE Gastrointestinal: NONE Hepatic: NONE Renal: NONE Musculoskeletal: NONE Psychiatric: anxiety, bipolar disease, psychosis Endocrine: NONE Blood Disorders: NONE Cancer(s): NONE CLAIMS ADJUDICATOR/Reproductive: NONE Past Surgical History Surgical History: none, non-contributory (Denies any surgeries) /Family History Place/Country of Origin: [facility] Childhood Family Constellation: Mother, father and brother (age 23) Primary Childhood Caretakers: father, mother Family Life During Childhood: reports good childhood. Parents at age 14 but maintained good relationship with both parents DCF Involvement? No Relationship w/Mother: best friend Relationship w/Father: positive Any Sibling(s)? Yes Sibling's Gender(s)/Age(s): male Sibling 1: (23yo) Relationship w/Sibling(s): positive Relationship w/Friends: positive Number of Pregnancies: 0 Abuse/Trauma History Trauma History/Current Trauma: Denies (unknown) Legal History Have you ever been arrested Yes Number of Arrests: 1 Hx of Juvenile Legal Charges? Yes If Yes: delinquency Hx of Adult Legal Charges? No Psychosocial History Primary Support System: mother Strengths/Capabilities: The patient resides with her mother and apparently does do very well when she is on her medications. Weaknesses: resistant to taking medications. hx of cocaine, etoh and marijuana use Physical Limitations (Interventions): None noted [place]/Social/Peer Relations positive Meaningful Activities: music Childhood Orthodox: Latter Day Current Pentecostalism Affiliation: no cheondoism stated Is Spirituality Important to You? yes Are There Developmental Issues? No Psychiatric Treatment History Psych Treatment Inpatient Treatment Yes Outpatient Treatment Yes Location of Treatment [facility], [place] IOP and OP Reason for Treatment Bipolar Disorder with Psychosis vs. Delusional Disorder Dates of Treatment ast OP in Summer / Fall 2016, Last IP at [facility] January 2017 Response to Treatment The patient frequently stops her medications and requires hospitalization. Diagnosis: Bipolar Disorder with Psychosis Vs. Delusional Disorder Risk Factors: high anxiety/distress, SA/MH hospitalized, substance abuse Substance Use/Abuse History Drug Use/Abuse Substance Used/Abused Cocaine First Use Unclear Last Used January 2017 How much used/taken Unclear How often Unclear For how long Unclear Route of use Unclear Substance Abuse Treatment Substance Abuse Treatment Inpatient Treatment No Outpatient Treatment Yes Location of Treatment [facility] OP Reason for Treatment Marijuana use Dates of Treatment Last IOP / OP September 2016 Response to Treatment Unclear Education History Highest Level of Education: high school/GED Other Degree(s): 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 No Current Mental Status Mental Status Orientation: Confused Affect: Inappropriate, Labile Speech: Incoherent (at times), Mumbled Neuro-vegetative: Appetite Decreased, Sleep Disturbance Appearance Appearance- Dress/Hygiene: The patient was disheveled, unkempt, with inappropriate facial expressions and making unintelligible sounds. Behaviors Thought Process: Disorganized, Flight of Ideas, Irrational, Loose Association, Thought Blocking Thought Content: Delusions, Ideas of Reference, Pentecostalism, The patient denies any current auditory or visual hallucinations, however states that "she inherently knows things." She reports yazidism delusions, noting that she talks to God and he talks back. She believes that her mother is the devil. She reports that she does feel out of control and possessed at times. Memory: Impaired (Poor Historian- Psychosis) Insight: Fair SI/HI Risk Assessment Past Suicidal Ideation/Attempts No Current Suicidal Ideation/Att No Past Homicidal Ideation/Att: No Current Homicidal Ideation/Attempts No Degree of Intent: None Danger To: N/A Gravely Disabled: Delusions / psychosis Lethality Ratin - Conclusion and Recommendations for treatment - and discharge planning Summary: Overall pt was cooperative with providing social hx though mood and facial expressions conveyed frustration.
[2017-02-25 16:14] VITALS: BP 135/78
[2017-02-25 19:57] VITALS: BP 137/69
[2017-02-26 08:36] VITALS: BP 129/68
--- NOTE | 2017-02-26 08:46 | CP SOUTH PROGRESS NOTE PSYCH ---
Psych (Inpt) Progress Note Progress Note Include the following elements, when applicable: Involvement in the active treatment of the patient with behavioral observations of the patient and the patient's response to the treatment. Review of the ongoing treatment process in the context of the treatment plan. Indication of how multi-disciplinary staff members are carrying out the treatment plan. Plans for future interventions and recommendations for revision of the treatment plan. Liaison with other physicians/providers. Progress Note: SUBJECTIVE: Patient standing a nurse's station, reluctantly agreed to speak to underwriter solicitation director in office. Motivated to get off of CO. Patient reports she is sleeping and eating well. Denies SI/HI/AVH/SIB. No side effects to medications other than sedation to Haldol however patient refuses most medications. No abnormal movements reported. Patient states she "really doesn't want to talk." States she is a nonsmoker and wanted nicotine gum discontinued. States she feels that she "does not need any psychiatric medications." States she feels better than she did 3 days ago, "thinking more clearly." OBJECTIVE: Per nursing, pt refused pm MD zohreh norified. No IMs needed since . Pt slept well overnight, remained on 1:1. VSS. Current Medications Sig/Anjelica Start time Last Medication Dose Route Stop Time Status Admin Acetaminophen 650 MG Q6P PRN 02/24 1045 AC PO Al Hydroxide/Mg 30 ML Q4-6 PRN PRN 02/24 1045 AC Hydroxide PO Benztropine Mesylate 1 MG Q6P PRN 02/24 1045 AC PO Benztropine Mesylate 1 MG Q6P PRN 02/24 1045 02/24 IM 1050 Haloperidol 2 MG BID 02/25 1019 AC 02/25 PO 1349 Haloperidol 5 MG Q6P PRN 02/24 1045 AC PO Haloperidol 5 MG Q6P PRN 02/24 1045 AC 02/24 IM 1051 Lorazepam 1.5 MG AT BEDTIME 02/25 2200 AC PO Lorazepam 1 MG Q4 HRS NEEDED PRN 02/24 1730 AC 02/25 PO 1349 Lorazepam 2 MG Q6P PRN 02/24 1045 AC 02/24 IM 1051 Magnesium Hydroxide 30 ML AT BEDTIME PRN 02/24 1045 AC PO Nicotine 2 MG Q2 HRS NEEDED PRN 02/24 1730 AC PO Trazodone HCl 50 MG AT BEDTIME NEED.. 02/24 1045 AC PO Vital Signs Date Time Temp Pulse Resp B/P B/P Pulse O2 O2 Flow FiO2 Mean Ox Delivery Rate 02/26 0836 97.5 88 129/68 02/25 1957 99.5 56 137/69 02/25 1614 99 135/78 MSE: GENERAL: Alert and oriented x3, intense eye contact, poorly-groomed, no apparent distress SPEECH: Low and brief, fluent. MOTOR: No tics, tremors, stereotypy, moving slowly. MOOD: "Sleepy" AFFECT: Appears tired, irritated, mood congruent, constricted range, non- labile, well related THOUGHT PROCESS: Logical, linear and goal-directed, but brief. THOUGHT CONTENT: No SI/SI/AVH/SIB, no apparent grandiosity, paranoia, delusions , obsessions, ruminations COGNITION: No apparent deficit in attention, memory or concentration JUDGMENT: poor-fair INSIGHT: poor ASSESSMENT:A 27-year-old SWF who was admitted [facility] on Tuesday night (2017) in what was reportedly-an acute psychotic state. She remains uncooperative and irritable and un-engaged, refusing medications last night. Today, patient in better behavioral control, still medication nonadherent, requesting to come off of CO. PLAN: -maintain safety, vs tid, q15 min checks, resume CO per RN discretion -continue to offer meds, with IMs available as needed -d/c NRT -continue plan
[2017-02-26 12:06] VITALS: BP 127/71
[2017-02-26 15:54] VITALS: BP 142/75
[2017-02-26 19:57] VITALS: BP 136/69
--- NOTE | 2017-02-27 02:08 | CP SOUTH PROGRESS NOTE PSYCH ---
Psych (Inpt) Progress Note Progress Note Include the following elements, when applicable: Involvement in the active treatment of the patient with behavioral observations of the patient and the patient's response to the treatment. Review of the ongoing treatment process in the context of the treatment plan. Indication of how multi-disciplinary staff members are carrying out the treatment plan. Plans for future interventions and recommendations for revision of the treatment plan. Liaison with other physicians/providers. Progress Note: SUBJECTIVE: Patient with improved mood today, stated she was "going with the flow." Less hostile, did well on every 15 minute checks. Sleeping and eating well. Denies SI/HI/AVH/SIB. No side effects to medications other than sedation to Haldol, but feels she does not need medications. No abnormal movements reported. Patient states she was able to take a shower and wash her hair today. Denied any other physical complaints or illness. OBJECTIVE: Per nursing, pt took pm meds but refused am meds, notified. No IMs needed since 02/24/17. Pt slept well overnight. VSS. Current Medications Sig/Anjelica Start time Last Medication Dose Route Stop Time Status Admin Acetaminophen 650 MG Q6P PRN 02/24 1045 AC PO Al Hydroxide/Mg 30 ML Q4-6 PRN PRN 02/24 1045 AC Hydroxide PO Benztropine Mesylate 1 MG Q6P PRN 02/24 1045 AC PO Benztropine Mesylate 1 MG Q6P PRN 02/24 1045 AC 02/24 IM 1050 Haloperidol 2 MG BID 02/25 1019 AC 02/26 PO 2242 Haloperidol 5 MG Q6P PRN 02/24 1045 AC PO Haloperidol 5 MG Q6P PRN 02/24 1045 AC 02/24 IM 1051 Lorazepam 1.5 MG AT BEDTIME 02/25 2200 AC 02/26 PO 2242 Lorazepam 1 MG Q4 HRS NEEDED PRN 02/24 1730 AC 02/25 PO 1349 Lorazepam 2 MG Q6P PRN 02/24 1045 AC 02/24 IM 1051 Magnesium Hydroxide 30 ML AT BEDTIME PRN 02/24 1045 AC PO Nicotine 2 MG Q2 HRS NEEDED PRN 02/24 1730 DC PO Trazodone HCl 50 MG AT BEDTIME NEED.. 02/24 1045 AC PO Vital Signs Date Time Temp Pulse Resp B/P B/P Pulse O2 O2 Flow FiO2 Mean Ox Delivery Rate 02/27 1200 92 136/72 02/27 0816 97.2 83 118/57 02/26 1957 97.4 88 136/69 02/26 1554 88 142/75 MSE: GENERAL: Alert and oriented x3, more cooperative today, improved grooming, more frequent smiles and more visible on unit, no apparent distress SPEECH: Moderate rate and rhythm, normal prosody, fluent. MOTOR: No tics, tremors, stereotypy. MOOD: "Going with the flow" AFFECT: More alert, calm, annoyed at times, "staring down" contract writer at one point in interview, mood congruent, improved range but still somewhat constricted, non -labile, fairly well related THOUGHT PROCESS: Logical, linear and goal-directed, but brief. THOUGHT CONTENT: No SI/HI/AVH/SIB, no apparent grandiosity, paranoia, delusions , obsessions, ruminations COGNITION: No apparent deficit in attention, memory or concentration JUDGMENT: fair INSIGHT: poor ASSESSMENT:A 27-year-old SWF who was [facility] on Tuesday night (2017) in what was reportedly-an acute psychotic state. She remains uncooperative and irritable and un-engaged, refusing medications last night. Today, patient has improved in mood, less irritable, in behavioral control, taking medications intermittently. PLAN: -maintain safety, vs tid, q15 min checks -continue meds, with IMs available as needed -continue plan -d/c NRT -continue plan
[2017-02-27 08:16] VITALS: BP 118/57
[2017-02-27 12:00] VITALS: BP 136/72
[2017-02-27 15:52] VITALS: BP 122/63
[2017-02-27 19:02] VITALS: BP 122/69
[2017-02-28 07:53] VITALS: BP 119/68
[2017-02-28 11:48] VITALS: BP 132/70
--- NOTE | 2017-02-28 13:05 | CP SOUTH PROGRESS NOTE PSYCH ---
Psych (Inpt) Progress Note Progress Note I reviewed Dr. Sarah Vargas notes for Tue + Tuesday, Nursing Staff, Group and Activity Therapists, Social Work Staff, and Psychiatrist discussed the patient's treatment and progress Clarissa refused to be interviewed, she said she did not want to talk to a psychiatrist and does not want any psychiatric medications, despite her uncooperativeness, she is less hostile, and reportedly- sleeping and eating well. Reportedly, denied thoughts of suicide, violence, or homicide she feels she does not need medications. No abnormal movements reported. Dr. Vargas note indicated that the patient was alert and oriented and no apparent deficit in attention, memory or concentration ASSESSMENT: A 27-year-old SWF who was admitted to [facility] on Tuesday night (2017) in what was reportedly-an acute psychotic state. She remains uncooperative and irritable and un-engaged, refusing medications. PLAN: Continue inpatient psychiatric care Continue 15 min checks Continue to offer haloperidol 2 mg twice daily as shes likely to need depot injections (if she ever agrees to that) Nursing care + education Social work services Group Therapy, Activity/milieu therapy Psychiatrist shall evaluate Clarissa mental state and medications daily
--- NOTE | 2017-02-28 14:05 | SOCIAL WORKER PROG NOTE PSYCH ---
Social Work Progress Note Progress Note Clarissa was in her room in bed this afternoon. I attempted to get her to meet with me, but she refused. I told her that I would like to speak with her eventually. I also asked if she had spoken with her Mom at all? She said she had over the weekend. I told her she had left a message last week and I was hoping she would sign a release for me to call her back. She said "absolutely not."
--- NOTE | 2017-02-28 15:12 | SOCIAL WORKER TX PLAN PSYCH ---
Treatment Plan - Please Document: - Evidence that there is ongoing collaboration between - the patient and the interdisciplinary team, - including the patient's active participation and - responsibility for engaging in the treatment regimen, - and that the treatment plan is individualized and - relevant to the patient's conditions. - Treatment plan should reflect documentation indicating - that all active therapeutic efforts are included. Strengths/Capabilities: The patient resides with her mother and apparently does do very well when she is on her medications. Physical Limitations (Interventions): None noted Patient Identified Trmt Goals: Patient has not verbalized anything specifically at this time Discharge Plan: [facility] Problem/Goals #1 Problem #1: psychosis Goal (Short Term): patient will agree to take medications to help her condition. Goal (Residential Solar Consultant): Patient will engage in treatment by meeting with the clinical team daily. Interventions: Patient will be offered medication management with the psychiatrist, patient will be offered groups on the unit pertaining to symptom management, relaxation, coping skills, goals. animal nursery worker will engage patient to try and build a working relationship. animal nursery worker will coordinate with family and help assist in aftercare planning. Modalities: group/ individual DSM5/PS Stressors/Medical Prob Diagnosis' (DSM 5, Stressors, Medical): F29 Unspecified Schizophrenia Spectrum and other Psychotic Disorder Current GAF: 20 Treatment Team - Responsibilities of members of the treatment team include: - Medication Management- MD or REGIONAL EDUCATION COORDINATOR - Medication Administration and Monitoring- Nurse - Group Therapy- Occupational Therapist - 1:1 Therapy,Disch Planning,family involvement-Firefighter
[2017-02-28 15:50] VITALS: BP 115/70
[2017-02-28 19:44] VITALS: BP 126/74
--- NOTE | 2017-03-01 11:47 | SOCIAL WORKER PROG NOTE PSYCH ---
Social Work Progress Note Progress Note Yesterday recieved a fax from [facility] with authorization for inpatient admission from 02/23/17-02/28/17. Faxed updated clinical yesterday to [phone]. Auth #[id number]. Approached Clarissa by the [employer] and asked how her day was going? She looked away and then stated "I don't have to talk to anybody." I said that was true, but if she talked to me it may help her get out of here to go home." She ignored me. She has been sitting by the [place] and walking around the unit, but refuses to engage in tx.
--- NOTE | 2017-03-01 12:19 | CP SOUTH PROGRESS NOTE PSYCH ---
Psych (Inpt) Progress Note Progress Note Nursing Staff, Group and Activity Therapists, Social Work Staff, and Psychiatrist discussed the patient's treatment and progress Clarissa continues to refuse to be interviewed. She has been refusing to take psychotropic medications and stated that she does not want any. Uncooperative, irritable, and slightly hostile. She, reportedly, has been sleeping and eating well. She, reportedly, denied thoughts of suicide or violence/homicide No abnormal movements reported. She, reportedly, is alert and oriented Assessment: A 27-year-old single White female admitted to [facility] on Tuesday night (2017) in what was reportedly-an acute psychotic state. She remains uncooperative and irritable and un-engaged, refusing medications. PLAN update: Continue inpatient psychiatric care Continue 15 min checks Continue to offer haloperidol 2 mg twice daily Continue Nursing care + education Social work to continue to try to engage patient in her own treatment planning/ discharge planning Continue Goup Therapy, Continue Activity/milieu therapy Psychiatrist shall evaluate Clarissa mental state and medications daily
[2017-03-01 12:25] VITALS: BP 126/64
[2017-03-01 16:00] VITALS: BP 133/60
[2017-03-01 19:43] VITALS: BP 129/68
[2017-03-02 07:51] VITALS: BP 120/68
--- NOTE | 2017-03-02 11:02 | CP SOUTH PROGRESS NOTE PSYCH ---
Psych (Inpt) Progress Note Progress Note Nursing Staff, Group and Activity Therapists, Social Work Staff, and Psychiatrist discussed the patient's treatment and progress Clarissa remains uncooperative with all staff members, she continues to refuse to be interviewed. She has been refusing to take psychotropic medications and stated that she does not want any. She is reported to be irritable and slightly hostile. She, reportedly, has been sleeping and eating well. She, reportedly, denied thoughts of suicide or violence/homicide. No abnormal movements reported. She, reportedly, is alert and oriented. Assessment: Clarissa is a 27-year-old single White female admitted to [facility] on Tuesday night ( 2017) in what was, reportedly, an acute psychotic state. She remains uncooperative and irritable and un-engaged, refusing medications. Treatment Plan Update: Continue inpatient psychiatric care Continue 15 min checks Continue to offer haloperidol 2 mg twice daily Continue Nursing care: assessments, education about symptoms and medications Social work to continue to try to engage patient in her own treatment planning/ discharge planning Continue Goup Therapy Continue Activity/milieu therapy Psychiatrist shall evaluate Clarissa mental state and medications daily
--- NOTE | 2017-03-02 11:38 | SOCIAL WORKER PROG NOTE PSYCH ---
Social Work Progress Note Progress Note Certified Family Mediator approached Clarissa as she was lying in bed. Certified Family Mediator introduced herself as Aure Riddle's international account representative and asked if she would be willing to speak. Clarissa asked who Aure was. Certified Family Mediator replied that Aure is Clarissa's social media designer. Clarissa stated, that' s not Aure. Certified Family Mediator proceeded to try to clarify by describing Aure. Clarissa again mumbled under her breath. Certified Family Mediator asked Clarissa to speak up if she wished conventional underwriter to respond to what she was mumbling. Clarissa stated, "You came into my room". Certified Family Mediator stated yes, and again asked if Clarissa would be willing to speak for a few minutes. Clarissa stated, "I don't talk. I am silently protesting". Certified Family Mediator stated that this was her right, and that she and conventional underwriter could try to speak later when she felt more up to speaking. Clarissa stared at conventional underwriter for approximately 30 seconds before turning away. Certified Family Mediator then left room and thanked Clarissa for her time.
[2017-03-02 12:44] VITALS: BP 128/74
[2017-03-02 19:56] VITALS: BP 123/63
[2017-03-03 07:38] VITALS: BP 124/65
--- NOTE | 2017-03-03 10:28 | CP SOUTH PROGRESS NOTE PSYCH ---
Psych (Inpt) Progress Note Progress Note 03/03/2017: Nursing Staff, Group and Activity Therapists, Social Work Staff, and Psychiatrist discussed the patient's treatment and progress The patient refused my offer to talk, she remains uncooperative with all staff members; refusing to take psychotropic medications and stated that she does not want any. She is reported to be irritable and slightly hostile. She, reportedly, has been sleeping and eating well. The patient --reportedly, denied thoughts of suicide or violence/homicide, The patient does not exhibit abnormal movements She seems alert and oriented. Assessment: The patient is a 27-year-old single White female who admitted to [facility] on Tuesday night (February 23, 2017). The patient was-- reportedly, in an acute psychotic state. The patient remains uncooperative and irritable and un-engaged, refusing medications. Treatment Plan Update: Continue inpatient psychiatric care Continue 15 min checks Continue to offer haloperidol 2 mg twice daily Nursing Staff: continue nursing mental state assessment once a shift, educate patient about symptoms and medications Social work staff: continue to try to engage patient in her own treatment planning/discharge planning Continue Group Therapy Continue Activity/Milieu therapy Psychiatrist shall continue to attempt to evaluate the patients mental state and medications daily
[2017-03-03 12:16] VITALS: BP 121/58
--- NOTE | 2017-03-03 16:28 | SOCIAL WORKER PROG NOTE PSYCH ---
Social Work Progress Note Progress Note Approached Clarissa in the kitchen and told her that the team was considering discharge for her soon. I asked if she had a place to live? She said she lives with her Mother and Brother. I asked if she has been speaking with them? She said she speaks with her Brother every day. She stated she would like to leave tomorrow. I told her we were recommending that she follow up at outpatient services for follow up tx. She stated she didn't need further treatment. She then walked away.
[2017-03-03 19:56] VITALS: BP 133/71
[2017-03-04 07:47] VITALS: BP 119/63
[2017-03-04] MEDS ORDERED: HALOPERIDOL2 M1 PO (10:26)
--- NOTE | 2017-03-04 10:39 | CP SOUTH PROGRESS NOTE PSYCH ---
Psych (Inpt) Progress Note Progress Note The Nursing Staff, Group and Activity Therapists, Social Work Staff, and Psychiatrist discussed the patient's treatment and progress The patient has been refusing to engage in treatment or discuss symptoms or medication options. She stated that she does not want any medications, refused to meet with social work staff since her admission. She took medication yesterday, was tired/sleepy today, less irritable and slightly less hostile. She, reportedly, has been sleeping and eating well. The patient has been telling staff the she has not been thinking of suicide or violence/homicide, patient does not exhibit abnormal movements She seems alert and oriented. Assessment: The patient is a 27-year-old single White female who admitted to [facility] on Tuesday night (February 23, 2017). The patient was-- reportedly, in an acute psychotic state (made inappropriate facial expressions throughout the Crisis evaluation, made sounds that were unintelligible, talks about feeling out of control and believes she is possessed at times, noting "holograms are real") On the unit, the patient remains uncooperative and un-engaged, refusing medications, refusing to meet with social work staff, or psychiatrist. Treatment Plan Update: Discharge Home I recommended she takes haloperidol 2 mg twice daily until she is fully evaluated I recommended that she follows up with outpatient treatment
--- NOTE | 2017-03-04 10:46 | DISCHARGE SUMMARY REPORT-PSYCH ---
Visit Information Visit Dates/Diagnosis' Admission Date: 02/23/2017 Discharge Date: 03/04/17 Reason for Admission: The patient was brought in to [facility]'s emergency department on social service liaison emergency transportation certificate reportedly because she has been decompensating after stopping medications. The patient was described in the crisis evaluation as exhibiting psychotic symptoms including reportedly having hallucinations and delusions Psy Discharge Primary Diag: F29: Unspecified Psychoti Psy Discharge Secondary Diag: F60.89: Other Specified P, F12.10: Cannabis Use Disorder F14.10: Cocaine Use Disorder Hospital Course Significant Lab Findings: Lab Amphetamines Screen < 100 NG/ML 02/22/17 1014 Barbiturate Screen < 60 NG/ML 02/22/17 1014 [place] < 0.2 mmol/L L 02/22/17 0120 Methadone Screen 61 NG/ML 02/22/17 1014 Serum Alcohol < 10.0 MG/DL 02/22/17 0120 U Benzodiazepines Scrn < 85 NG/ML 02/22/17 1014 Ur Phencyclidine Scrn < 6.00 NG/ML 02/22/17 1014 Urine Cannabis Screen < 5.00 NG/ML 02/22/17 1014 Urine Cocaine Screen < 50 NG/ML 02/22/17 1014 Urine Opiates Screen < 100.00 NG/ML 02/22/17 1014 Course Complications: The patient did not have any complications while she was on Inpatient Psychiatry Consultations: The patient was seen for history and physical examination while she was in Inpatient Psychiatry. History and physical was performed on 02/25/[address] Delbert Gillespie's Assessment: 27 yo F with h/o anxiety, bipolar disorder, but no medical problems, is admitted to Inpatient psychiatry for psychosis, og. Continue management of psychosis as per primary team. Please re-consult medicine for any issues. Problem List: 1. Psychosis Allergies: Coded Allergies: amoxicillin (UNKNOWN 02/23/17) sulfamethoxazole (From BACTRIM) (UNKNOWN 02/23/17) trimethoprim (From BACTRIM) (UNKNOWN 02/23/17) Hospital Course/TX Response: The patient presented to the emergency department on 02/23/2017 in the afternoon hours. The patient was admitted to Inpatient Psychiatry in the early evening hours of 02/23/2017. I evaluated the patient for the first on the following day (02/24/2017) The first day the patient refused evaluation and soon afterward became very hostile and aggressive and had to be medicated against her will by intramuscular medications. The remainder of her stay at Inpatient Psychiatry the patient consistently was refusing to be interviewed by both the social service liaison or the psychiatrist. She continued to refuse to take any medications. She refused to participate in any aftercare planning. There were no further episodes of restraints or intramuscular medications, as her agitation subsided, although she continued to be noncompliant, refusing evaluations and refusing medications. On the unit, she denied thinking of suicide to the staff that she agreed to talk to mostly were nursing staff for group therapy staff. She did not voice any complaints. It was difficult to determine whether she continued to have delusions or hallucinations. From the objective observations there was no florid psychotic signs other than her inappropriate interactions with peers and staff. The patient did not seem to be paranoid and was visible in the common area quite often usually interacting with other peers or select staff members. Day of Discharge 03/04/2017 The Nursing Staff, Group and Activity Therapists, Social Work Staff, and Psychiatrist discussed the patient's treatment and progress The patient has been refusing to engage in treatment or discuss symptoms or medication options. She stated that she does not want any medications, refused to meet with social work staff since her admission. She took medication yesterday, was tired/sleepy today, less irritable and slightly less hostile. She, reportedly, has been sleeping and eating well. The patient has been telling staff the she has not been thinking of suicide or violence/homicide, patient does not exhibit abnormal movements She seems alert and oriented. Assessment: The patient is a 27-year-old single White female who admitted to [facility] on Tuesday night (February 23, 2017). The patient was-- reportedly, in an acute psychotic state (made inappropriate facial expressions throughout the Crisis evaluation, made sounds that were unintelligible, talks about feeling out of control and believes she is possessed at times, noting "holograms are real") On the unit, the patient remains uncooperative and un-engaged, refusing medications, refusing to meet with social work staff, or psychiatrist. Treatment Plan Update: Discharge Home I recommended she takes haloperidol 2 mg twice daily until she is fully evaluated I recommended that she follows up with outpatient treatment Discharge HBIPS - Tobacco Use Treatment Offered Post DC Medications Offered: Not Applicable Post DC Tobacco Treatment Plan: Not Applicable - EtOH/Drug Use D/O Treatment Offered Post DC Medications Offered: Ref Med EtOH/Drug Use D/O Post DC EtOH/SubAbuse TX Plan: Refused Post DC Tx Pgm Metabolic Screening - Screen if on a Neuroleptic Medication - Metabolic screening should include: - Blood Pressure, BMI, Glucose or Hgb A1c, & a - Lipid profile from within the past 365 days. Discharge Instructions General Discharge Information Multiple Neuroleptics: Not Applicable: refused all medications Discharge Diet Regular Discharge Activity Normal DC Disposition: Home Referrals Ordered Referrals Provider Referral 03/10/17 For Groups: Outpatient Psychiatry [facility] Intake 03/18 9:30am [address] [place] [address] Provider Referral 03/18/17 For Groups: Outpatient Psychiatry [facility] Appt. with Dr. Jones 03/18 9:30am [address] [place] [address] Prescriptions Start taking the following new medications: Haloperidol (Haloperidol) 2 MG TABLET 2 Milligram ORAL TWICE DAILY Qty = 30 No Refills Comments: Last Taken:03/03/17 Time:2200 Copies To: Hermes SHARMA
--- NOTE | 2017-03-04 12:04 | SOCIAL WORKER PROG NOTE PSYCH ---
Social Work Progress Note Progress Note Approached Clarissa and told her I would like to discuss her discharge with her. She stated she was not going to talk with me until she spoke with her Dad. I asked her what time that was going to be? She stated "later today." I told her she was being discharged today and we need to have her contact family. She stated that I had given her no notice about her discharge. I reminded her that I told her yesterday that we were considering discharge for today. She sat on the chair and stated that she wasn't doing anything until she speaks with her Dad later today and that we can't expect her to stand on the corner with no clothes waiting for her family to know where she is. I asked if she would sign a release for me to reach out to family? She refused and stated she would call and speak with her Dad later. After speaking further with the clinical team about her response. We called security and directed her to call family immediately to discuss her discharge. She made the phone call appropriately. She asked her Mother to get her a change of clothes and asked for a ride home. She was told someone would pick her up between 12-12:30pm. I scheduled OPS appt.'s for her for 03/10 (intake with Astrid Viveros) and Med appt. on 03/18 at 9:30am with Dr. Jones.
[2017-03-04 12:05] VITALS: BP 114/67
--- NOTE | 2017-03-04 17:22 | SOCIAL WORKER PROG NOTE PSYCH ---
Social Work Progress Note Faxed Referral(s) Referred To: OPS Transition of Care Documents sent: Health Summary Faxed to: [facility] Fax #: [phone] Faxed by: Aure Riddle Date faxed: 03/04/17 Time Faxed: [phone]
== END 2017-03-04 13:02 | DRG 885 ==
LOC: ERH 00:11 → ERHI 02-23 11:32 → CP SOUTH 02-23 11:32 → ENTRNSPT 02-23 17:13 → EDTRNSPT 02-23 17:14 → EDTRNSPTSTS 02-23 17:14 → EDTRNSPT 02-23 17:37 → CP SOUTH 02-23 19:31 → ENRESERV 02-23 23:59 → CANRESERV 02-23 23:59 → CMPTRNSPT 02-24 07:09 → CP SOUTH 02-24 10:21
PROVIDERS: Emergency Medicine
DX: F29 Unspecified psychosis not due to a substance or known physiological condition (principal); F60.89 Other specific personality disorders
CPT/HCPCS: 80307; 96372; G0463; G0480; J0515; J1200; J1630; J2060

== ENCOUNTER 2017-03-13 22:48 | Inpatient (IN) | payer OTHER ==
[~2017-03-13] VITALS: Ht 152.4 cm; Wt 68.3 kg
[~2017-03-13 22:48] MED LIST: HALOPERIDOL2 M1 PO
--- NOTE | 2017-03-13 22:50 | ED PSYCHIATRIC COMPLAINT ---
See Addendum History of Present Illness General Chief Complaint: Psychiatric Related Complaint Stated Complaint: "HI" Source: patient Exam Limitations: clinical condition Vital Signs & Intake/Output Vital Signs & Intake/Output Vital Signs Date Time Temp Pulse Resp B/P B/P Pulse O2 O2 Flow FiO2 Mean Ox Delivery Rate 03/15 0616 96.6 104 20 137/84 97 Room Air 03/15 0202 97.8 78 18 134/78 96 Room Air Allergies Coded Allergies: amoxicillin (UNKNOWN 02/23/17) sulfamethoxazole (From BACTRIM) (UNKNOWN 02/23/17) trimethoprim (From BACTRIM) (UNKNOWN 02/23/17) Reconcile Medications Haloperidol 2 MG TABLET 2 MG PO BID recent hallucinations/delusion Triage Nurses Notes Reviewed? yes Onset: Gradual Duration: day(s): Timing: recent history Severity: severe Associated Symptoms: anxiety HPI: 27yo woman h/o bipolar disorder, prescribed abilify, discharged from [facility] 2 days ago, presents with disorganized thinking, pressured speech, and making threatening statements to her mother after an argument. She denies alcohol, drug use. She is otherwise well. (Caden BOWEN,Colby Ivey) Past History Travel History Traveled to [place] past 21 day No Medical History Any Pertinent Medical History? 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 Maternal grandmother (Stroke). Hx Contributory? No (Caden BOWEN,Colby Ivey) Review of Systems Review of Systems Constitutional: Reports: no symptoms. EENTM: Reports: no symptoms. Respiratory: Reports: no symptoms. Cardiovascular: Reports: no symptoms. GI: Reports: no symptoms. Genitourinary: Reports: no symptoms. Musculoskeletal: Reports: no symptoms. Skin: Reports: no symptoms. Neurological/Psychological: Reports: no symptoms. Hematologic/Endocrine: Reports: no symptoms. Immunologic/Allergic: Reports: no symptoms. All Other Systems: Reviewed and Negative (Caden BOWEN,Colby Ivey) Physical Exam Physical Exam General Appearance: well developed/nourished, mild distress Head: atraumatic Eyes: Bilateral: PERRL, EOMI. Ears, Nose, Throat: normal pharynx, normal ENT inspection, hearing grossly normal Neck: normal inspection, supple Respiratory: normal breath sounds Cardiovascular: regular rate/rhythm Gastrointestinal: soft, non-tender Extremities: normal range of motion Neurological/Psychiatric: no motor/sensory deficits, awake, agitated, alert, normal mood/affect Appearance/Memory/Insight: disheveled Behavoir/Eye Contact/Speech: belligerent, uncooperative Thoughts/Hallucinations: no apparent hallucination Skin: intact, normal color, warm/dry Cleared? (statement below) Yes SAD PERSONS SAD PERSONS Response Value Rational Thinking Loss? yes 2 Single//? yes 1 Social Support? has no support 1 Total 4 SAD PERSONS Done? yes (Caden BOWEN,Colby Ivey) Progress Differential Diagnosis: bipolar disorder vs drugs vs other. Plan of Care: Orders Procedure Date/time Status Continuous Observation Monitor 03/15 1900 Active Continuous Observation Monitor 03/15 1500 Active Continuous Observation Monitor 03/15 1100 Active Continuous Observation Monitor 03/15 0700 Active Current Medications Sig/Anjelica Start time Last Medication Dose Stop Time Status Admin Haloperidol 2 MG BID 03/14 2200 UNVr (Haldol 2MG Tablet) 7:10 AM 03/14/17 PATIENT SIGNED OUT TO ME BY DR NEGRETE. PENDING CRISIS EVALUATION/ DISPOSITION. 11:25 AM SEEN BY CRISIS (DORINA), PATIETN WILL REQUIRE PSYCHIATRIC ADMISSION. (Chelo Donovan MD) Hand-Off Endorsed To: Chelo Donovan MD Endorsed Time: 0700 Pending: consult, labs (Caden BOWEN,Colby Ivey) Initial ED EKG: SINUS TACHYCARDIA @ 106 BPM Hand-Off Endorsed To: Sascha Rodrigues MD Endorsed Time: 1900 Pending: consult (BED SEARCH) (Chelo Donovan MD) Hand-Off Endorsed To: Yoseph Moore MD Endorsed Time: 0700 Pending: consult (Sascha Rodrigues MD) Hand-Off Endorsed To: Jaylon Guthrie MD Endorsed Time: 1508 Pending: other (placement) (Yoseph Moore MD) Comments: 03/15/17 15:53 pt signed out to me by dr moore. pt resting comfortably. 03/15/2017 11:26:26 PM patient signed out to Dr. 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 (Jaylon Guthrie MD) Departure Departure Disposition: STILL A PATIENT Condition: Stable Clinical Impression Primary Impression: Bipolar disorder Referrals: Velma Roberts MD (PCP/Family) Departure Forms: Customer Survey General Discharge Information (Colby Negrete MD) Customer Survey General Discharge Information (Colby Negrete MD) Sascha Rodrigues MD Endorsed Time: 1900 Pending: consult (BED SEARCH) (Zion BOWEN,Chelo) Hand-Off Endorsed To: Yoseph Moore MD Endorsed Time: 0700 Pending: consult (Sascha Rodrigues MD) Departure Departure Disposition: STILL A PATIENT Condition: Stable Clinical Impression Primary Impression: Bipolar disorder Referrals: Velma Roberts MD (PCP/Family) Departure Forms: Customer Survey General Discharge Information (Colby Negrete MD) Disposition: STILL A PATIENT Condition: Stable Clinical Impression Primary Impression: Bipolar disorder Referrals: Velma Roberts MD (PCP/Family) Departure Forms: Customer Survey General Discharge Information (Colby Negrete MD)
[2017-03-14 02:15] LABS: ABSOLUTE BASOPHIL COUNT 0.1 /CUMM (0.0-0.2); ABSOLUTE EOSINOPHIL COUNT 0.1 /CUMM (0.0-0.7); ABSOLUTE GRANULOCYTE CT 8.7 /CUMM (1.4-6.5); ABSOLUTE LYMPH COUNT 2.5 /CUMM (1.2-3.4); ABSOLUTE MONOCYTE COUNT 0.7 /CUMM (0.10-0.60); BASOPHIL % 0.5 % (0.0-2.0); EOSINOPHIL % 0.6 % (0-5); HEMATOCRIT 39.6 % (37-47); MEAN CORPUSCULAR HGB 28.4 PG (27.0-31.0); MEAN CORPUSCULAR HGB CONC 33.7 G/DL (33.0-37.0); MEAN CORPUSCULAR VOLUME 84.3 FL (81.0-99.0); MEAN PLATELET VOLUME 7.5 FL (7.4-10.4); PLATELET COUNT 331 /CUMM (130-400); RBC DISTRIBUTION WIDTH 12.6 % (11.5-14.5)
--- NOTE | 2017-03-14 12:02 | ED PSYCH CRISIS CONSULTATION ---
See Addendum Crisis Consult Basic Assessment Date of Consult: 03/14/17 Responsible Person/Accompanied By: self Insurance Authorization: Insurance #1: Insurance name: [facility] Phone number: Policy number: [id number] Group number: [id number] Authorization number: ED Provider: Patient's ED Provider: Chelo Donovan MD Primary Care Physician: Patient's PCP: Velma Roberts MD PCP's Current Psychiatrist: None Chief Complaint: Psychiatric Related Complaint Patient's Quote: "I'm uncomfortable.Hospital is fucked up. I don't take meds at all." Present Illness: Pt is a 27 year old white female BIBA from her home yesterday on a [employer] PEC after pt's mother called mobile crisis. This morning clinician was able to speak with mother via phone. Mother stated that she called mobile crisis yesterday morning due to pt's psychotic and agitated behavior. Mother explained that pt's brother became increasingly concerned over pt's behavior in the home. Mother stated that pt's brother was afraid of the pt. Pt was described as agitated and aggressive. Mother stated that yesterday morning pt ran outside in the rain and was angry and swearing. Mother claimed that since pt's release from [facility] inpatient unit on 03/04/17 she has been unstable and noncompliant with medication and treatment. Pt has not been taking proper care of herself regarding ADL's. Mother reported that pt was manic throughout the week. Pt laughed inappropriately and was up for three days. Mother stated that pt has also been isolating herself in her room since the holidays. She has not been in any relationships and only going out with mother. Mother stated that pt does not respond well to her. Mother stated that pt believes mother has tried to keep her in a "zombie state" since she was 19. Upon this morning's evaluation pt stated that she was uncomfortable. She stated , "this hospital is fucked up" adding that she doesn't take meds. She also stated, " I was prescribed all kinds of shit". Pt did state that she has not recently used any illicit substance or alcohol. She stated she had a shot of alcohol on . She stated that she hasn't used cocaine in a long time. Pt's Etoh and drug screen came back negative. Pt also denied any history of or current suicidal ideations/intent. Pt became increasingly agitated when asked about her mother. Pt stated that she lives with her mother and brother. She stated that her mother is "weird". At that point pt stated that she doesn't want to talk anymore. Pt was disheveled and unkempt. Pt presented as extremely lethargic and slowed with her speech and responses. Her eyes were mostly shut as she spoke. Pt was agitated and short. She did not expound on questions asked of her. Pt denied any auditory or visual hallucinations. She was tangential and paranoid. Pt presented with delusional mentation. Pt had recently discharged from [facility] inpatient unit on 03/04/17 with discharge plan for involvement in [facility] outpatient services. Pt was also prescribed Haldol 2 mg BID at the time of discharge. Pt also had a no show for her follow up outpatient appointment on 03/10/17. Given pt's current mental status and noncompliance with medication and treatment she is considered at heightened risk for possible harm to self and or others. Pt is gravely disabled and an inpatient level of care is recommended at this time. Geno Calderón [phone] of [facility] called stating that [facility] completed the mobile crisis evaluation yesterday. Given pt's history of noncompliance Geno recommended that once pt is discharged from an inpatient level of care she be referred to the Act team. Patient's Address: [address] [place] [address] Other Phone Number: Who Do You Live With? Mother Family/Informants Interviewed: mother Christy George [phone] Allergies - Coded Allergies: amoxicillin (UNKNOWN 02/23/17) sulfamethoxazole (From BACTRIM) (UNKNOWN 02/23/17) trimethoprim (From BACTRIM) (UNKNOWN 02/23/17) Current Medications - Scheduled Medications Haloperidol 2 MG TABLET 2 MG PO BID recent hallucinations/delusion #30 TAB Prescribed by Cary BOWEN,Tomas on 03/04/17 Laboratory Results: Laboratory Tests 03/14/17 0919: Urine Opiates Screen < 100.00, Methadone Screen < 40, Barbiturate Screen < 60, Ur Phencyclidine Scrn < 6.00, Amphetamines Screen < 100, U Benzodiazepines Scrn < 85, Urine Cocaine Screen < 50, Urine Cannabis Screen < 5.00 03/14/17 0154: Anion Gap 16, Estimated GFR > 60, BUN/Creatinine Ratio 32.0 H, Glucose 81, Calcium 9.3, Total Bilirubin 0.7, AST 24, ALT 31, Alkaline Phosphatase 52, Total Protein 6.4, Albumin 4.0, Globulin 2.4, Albumin/Globulin Ratio 1.7, CBC w Diff NO MAN DIFF REQ, RBC 4.70, MCV 84.3, MCH 28.4, MCHC 33.7, RDW 12.6, MPV 7.5, Gran % 72.0, Lymphocytes % 20.7, Monocytes % 6.2, Eosinophils % 0.6, Basophils % 0.5, Absolute Granulocytes 8.7 H, Absolute Lymphocytes 2.5, Absolute Monocytes 0.7 H, Absolute Eosinophils 0.1, Absolute Basophils 0.1, Serum Alcohol < 10.0 Past History Past Medical History Neurological: NONE EENT: NONE Cardiovascular: NONE Respiratory: NONE Gastrointestinal: NONE Hepatic: NONE Renal: NONE Musculoskeletal: NONE Psychiatric: anxiety, bipolar disease, psychosis Endocrine: NONE Blood Disorders: NONE Cancer(s): NONE SPRAYER HAND/Reproductive: NONE Past Surgical History Surgical History: non-contributory (Denies any surgeries), 1 Psychosocial History Strengths/Capabilities: The patient resides with her mother and apparently does do very well when she is on her medications. Physical Limitations (Interventions): None noted Psychiatric Treatment History Psych Treatment Psychiatric Treatment Yes Inpatient Treatment Yes Outpatient Treatment Yes Location of Treatment [facility] Reason for Treatment Bipolar/psychosis and anxiety Dates of Treatment 2016,2017 Response to Treatment Pt is noncompliant with treatment recommendations and medication therapy. Diagnosis by History: Bipolar Disorder with Psychosis Vs. Delusional Disorder Substance Use/Abuse History Drug Use/Abuse Substances Used/Abused Yes Substance Used/Abused Cocaine First Use unknown Last Used Pt stated last used "a long time ago" How much used/taken unknown How often unknown For how long unknown Route of use unknown Substance Abuse Treatment Substance Abuse Treatment Past Substance Abuse TX Yes Inpatient Treatment No Outpatient Treatment Yes Location of Treatment [facility] Reason for Treatment illicit substance abuse Dates of Treatment September 2016 Response to Treatment unknown Current Mental Status Mental Status Orientation: Confused, Current situation, not oriented to time/day Affect: Angry, Flat, Inappropriate Speech: Delayed, Increased Latency, Soft Neuro-vegetative: Anhedonia, Concentration Poor, Energy Decreased, Loss of Interest, Sleep Disturbance Appearance Appearance- Dress/Hygiene: Pt was dressed in hospital scrubs. Disheveled and unkempt appearance. Behaviors Thought Process: Irrational, Tangential Thought Content: Delusions, Paranoid Memory: Impaired Insight: Poor SI/HI Risk Assessment Past Suicidal Ideation/Attempts No Current Suicidal Ideation/Att No Past Homicidal Ideation/Att: No Current Homicidal Ideation/Attempts No Degree of Intent: None Danger To: Others, Self (gravely disabled) Gravely Disabled: Lack of Insight, Poor Impulse Control, Poor Judgment Risk Factors: high anxiety/distress, SA/MH hospitalized, substance abuse, poor impulse control, lack of outcome concern Lethality Ratin PTSD Checklist PTSD Done? patient declined ED Management Sitter: Yes Restraints: No DSM5/PS Stressors/Medical Prob Diagnosis' (DSM 5, Stressors, Medical): F29 Unspecified Schizophrenia Spectrum and other Psychotic Disorder Current GAF: 25 Departure Disposition Psych Medical Clearance Date: 03/14/17 Medically Cleared at: 1045 Time Started: 1045 Time Ended: 1130 Psychiatrist Consulted: Dr. Townsend Date Disposition Established: 03/14/17 Time Disposition Established: 1145 Plan for Disposition - Modality: Inpatient Psychiatry Rationale for Disposition: Pt presents with s/s of psychosis/delusions. Pt has poor insight and judgement and considered gravely disabled. Pt has a history of treatment and medication noncompliance. Type of IP Admission: PEC Referrals Alejandra BOWEN,Velma (PCP/Family)
--- NOTE | 2017-03-15 15:06 | ED PSYCHIATRIST/APRN CONSULT ---
Psychiatrist/PAPER REWINDER ED Consult Assessment and Plan: 27 yo CSF, well known to us from previous treatment on the inpatient unit and [facility]. We reviewed the speech and language clinician's notes, the inpatient notes, past IOP treatment notes, and attempted to interview the patient. She has been diagnosed with mood disorder as well as delusional disorder vs. unspecified psychotic disorder(2013, 2015, 2016). Presents as a short stature female of average weight, disheveled, with unpleasant body odor. She refuses to talk. When we asked permission to enter her room she initially agreed but when attempting to approach her bed she abruptly stood and went in the hallway addopting a "stork position"-one leg straight, one bended at the knee with the sole proped on the other leg's knee, hands outstreched, with admirable balance.She said"see how much control I have, i have all the control in the world, look at my balance. I do not need you or any medication, now you can leave me alone". According to her mother she stopped taking her medication immediately after being discharged from Inpatient Psychiatry and deteriorated rapidly. The family is concerned and worried about her, the mother is afraid of her because of previous aggressive behavior towards her and her brother (they all live together) Clarissa has very poor insight into her condition and lengthy history of noncompliance with medication and aftercare. She did have periods of time when she was doing very well eg [facility] in August 2016, being compliant with her medication and actually wanting continue treatment. During the current presentation, with Clarissa appearing to respond to internal stimuli, refusing to take medication, not having a place to live because her mother is afraid to take her back home, not being able to care for herself and sustain basic needs and activities of daily living it is apparent that she is gravely disabled and needs stabilization in a safe, structured environment with intent to re-motivate her for treatment. She might benefit from a long acting injectable antipsychotic and may need to be manadated to take medication in order to prevent her from hurting herself and/or others(she has been aggressive towards her mother and brother in the past, they are afraid of her). A bed search is in progress, [facility] does not have availability at this time.
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
[2017-03-16 17:03] VITALS: BP 113/81
[2017-03-16 17:09] VITALS: BP 153/81
--- NOTE | 2017-03-17 01:45 | PN- Att Addend ---
Attending Addendum Attending Brief Note 27 yo F recently discharged after being treated for psychosis/ og, is here for evaluation of disorganized speech, psychotic and agitated behaviour, possible schizophrenia. She reports she did not take any of her prescription psych medications as they did not help her. Please refer to Psych H and P for full details. Patient has no medical problems. She complained of a sore throat and a dry cough. She quit smoking 2-3 months back, and thinks this is similar to her smoker's cough. She denies chest congestion, rhinorrhea, or flu like symptoms. She reports a h/o cocaine and marijuana use but has not been using it for over 2 months. 12 point review of systems is otherwise negative. Vital Signs Date Time Temp Pulse Resp B/P B/P Pulse O2 O2 Flow FiO2 Mean Ox Delivery Rate 03/16 1709 97.6 87 153/81 03/16 1703 97.6 87 113/81 03/16 1537 97.9 69 18 118/70 97 Room Air 03/16 1335 98.9 66 18 122/78 97 Room Air 03/16 1042 98.1 60 20 120/60 97 Room Air 03/16 0853 97.5 72 20 105/71 99 Room Air Physical exam: General Appearance Alert, Oriented X3, Cooperative, No Acute Distress, Flat affect Skin No Rashes, No Breakdown, No Significant Lesion HEENT Atraumatic, PERRLA, EOMI, Mucous Membr. moist/pink, no erythema to posterior pharynx. Neck Supple Cardiovascular Regular Rate, Normal S1, Normal S2, No Murmurs Lungs Clear to Auscultation, Normal Air Movement Abdomen Normal Bowel Sounds, Soft, No Tenderness Neurological Exam Findings: Normal Gait, Normal Speech, Sensation Intact, Cranial Nerves 3-12 NL, Reflexes 2+ Extremities No Edema, Normal Pulses, No Tenderness/Swelling Vascular Normal Pulses, Pulses Symmetrical Laboratory Tests 03/16 03/16 02 1600 1449 0919 Toxicology Urine Opiates Screen (>2000 NG/ML) < 100.00 Methadone Screen (>300 NG/ML) < 40 Barbiturate Screen (>200 NG/ML) < 60 Ur Phencyclidine Scrn (>25 NG/ML) < 6.00 Amphetamines Screen (>1000 NG/ML) < 100 U Benzodiazepines Scrn (>200 NG/ML) < 85 Urine Cocaine Screen (>300 NG/ML) < 50 Urine Cannabis Screen (>50 NG/ML) < 5.00 Urines Urine Test NEGATIVE Cancelled EKG: Sinus tachycardia with nonspecific T-wave abnormalities. Assessment and plan: 27 yo F with h/o anxiety, bipolar disorder, no medical problems, recently discharged after being treated for psychosis/ og, is admitted to Inpatient psychiatry unit for management of psychosis and possible schizophrenia. - For her sore throat - will check a flu swab and give her symptomatic treatment with chlorseptic lozenges. - Continue management of psychosis as per primary team. - DVT prophylaxis - low risk, early ambulation. Please re-consult medicine for any issues.
[2017-03-17 11:10] VITALS: BP 124/74
--- NOTE | 2017-03-17 12:45 | SOCIAL WORKER SOCIAL HX PSYCH ---
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 This morning clinician was able to speak with mother via phone. Mother stated that she called mobile crisis yesterday morning due to pt's psychotic and agitated behavior. Mother explained that pt's brother became increasingly concerned over pt's behavior in the home. Mother stated that pt's brother was afraid of the pt. Pt was described as agitated and aggressive. Mother stated that yesterday morning pt ran outside in the rain and was angry and swearing. Mother claimed that since pt's release from [facility] inpatient unit on 03/04/17 she has been unstable and noncompliant with medication and treatment. Pt has not been taking proper care of herself regarding ADL's. Mother reported that pt was manic throughout the week. Pt laughed inappropriately and was up for three days. Mother stated that pt has also been isolating herself in her room since the holidays. She has not been in any relationships and only going out with mother. Mother stated that pt does not respond well to her. Mother stated that pt believes mother has tried to keep her in a "zombie state" since she was 19. Upon this morning's evaluation pt stated that she was uncomfortable. She stated , "this hospital is fucked up" adding that she doesn't take meds. She also stated, " I was prescribed all kinds of shit". Pt did state that she has not recently used any illicit substance or alcohol. She stated she had a shot of alcohol on . She stated that she hasn't used cocaine in a long time. Pt's Etoh and drug screen came back negative. Pt also denied any history of or current suicidal ideations/intent. Pt became increasingly agitated when asked about her mother. Pt stated that she lives with her mother and brother. She stated that her mother is "weird". At that point pt stated that she doesn't want to talk anymore. Pt was disheveled and unkempt. Pt presented as extremely lethargic and slowed with her speech and responses. Her eyes were mostly shut as she spoke. Pt was agitated and short. She did not expound on questions asked of her. Pt denied any auditory or visual hallucinations. She was tangential and paranoid. Pt presented with delusional mentation. Pt had recently discharged from [facility] inpatient unit on 03/04/17 with discharge plan for involvement in [facility] outpatient services. Pt was also prescribed Haldol 2 mg BID at the time of discharge. Pt also had a no show for her follow up outpatient appointment on 03/10/17. Given pt's current mental status and noncompliance with medication and treatment she is considered at heightened risk for possible harm to self and or others. Pt is gravely disabled and an inpatient level of care is recommended at this time. Geno Calderón [phone] of [facility] called stating that [facility] the mobile crisis evaluation yesterday. Given pt's history of noncompliance Geno recommended that once pt is discharged from an inpatient level of care she be referred to the Act team. Primary Language? Irish Language(s) Spoken At Home: Irish Living Situation Other Living Arrangement: relative's/guardian's kamron Feel Safe Where You Are Living Yes Feel Safe in Relationships? Yes Allergies - Coded Allergies: amoxicillin (UNKNOWN 02/23/17) sulfamethoxazole (From BACTRIM) (UNKNOWN 02/23/17) trimethoprim (From BACTRIM) (UNKNOWN 02/23/17) Current Medications - Scheduled Medications Haloperidol 2 MG TABLET 2 MG PO BID recent hallucinations/delusion #30 TAB Prescribed by Tomas Townsend MD on 03/04/17 Consequences of Psych Med Use: pt is not medication compliant since recent CPS discharge Past History Past Medical History Neurological: NONE EENT: NONE Cardiovascular: NONE Respiratory: NONE Gastrointestinal: NONE Hepatic: NONE Renal: NONE Musculoskeletal: NONE Psychiatric: anxiety, bipolar disease, psychosis Endocrine: NONE Blood Disorders: NONE Cancer(s): NONE SUPERVISOR REMELT/Reproductive: NONE Past Surgical History Surgical History: none, non-contributory (Denies any surgeries) /Family History Place/Country of Origin: [facility] Childhood Family Constellation: Mother, father and brother (age 23) Primary Childhood Caretakers: father, mother Family Life During Childhood: reports good childhood. Parents at age 14 but maintained good relationship with both parents DCF Involvement? No Relationship w/Mother: best friend Relationship w/Father: positive Any Sibling(s)? Yes Sibling's Gender(s)/Age(s): male Sibling 1: Relationship w/Sibling(s): positive Relationship w/Friends: positive Number of Pregnancies: 0 Abuse/Trauma History Trauma History/Current Trauma: Denies (unknown) Legal History Hx of Juvenile Legal Charges? Yes If Yes: delinquency Hx of Adult Legal Charges? No Psychosocial History Primary Support System: mother Strengths/Capabilities: The patient resides with her mother and apparently does do very well when she is on her medications. Physical Limitations (Interventions): None noted Dairy/Social/Peer Relations positive Meaningful Activities: music Childhood Yazdanism: Restorationist Current Congregation Affiliation: no taoism stated Is Spirituality Important to You? yes Are There Developmental Issues? No Psychiatric Treatment History Psych Treatment Inpatient Treatment Yes Outpatient Treatment Yes Location of Treatment [facility] Reason for Treatment Bipolar/psychosis and anxiety Dates of Treatment 2016,2017 Response to Treatment Pt is noncompliant with treatment recommendations and medication therapy. Diagnosis: Bipolar Disorder with Psychosis Vs. Delusional Disorder Risk Factors: high anxiety/distress, SA/MH hospitalized, substance abuse, poor impulse control, lack of outcome concern Substance Use/Abuse History Drug Use/Abuse Substance Used/Abused Cocaine First Use unknown Last Used Pt stated last used "a long time ago" How much used/taken unknown How often unknown For how long unknown Route of use unknown Symptoms of Use: pt has a hx of cocaine use but none since last CPS admission Substance Abuse Treatment Substance Abuse Treatment Inpatient Treatment No Outpatient Treatment Yes Location of Treatment [facility] Reason for Treatment illicit substance abuse Dates of Treatment September 2016 Response to Treatment unknown Education History Highest Level of Education: high school/GED Other Degree(s): 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 No Current Mental Status Mental Status Orientation: Confused, Current situation, not oriented to time/day Affect: Angry, Flat, Inappropriate Speech: Delayed, Increased Latency, Soft Neuro-vegetative: Anhedonia, Concentration Poor, Energy Decreased, Loss of Interest, Sleep Disturbance Appearance Appearance- Dress/Hygiene: Pt was dressed in hospital scrubs. Disheveled and unkempt appearance. Behaviors Thought Process: Irrational, Tangential Thought Content: Delusions, Paranoid Memory: Impaired Insight: Poor SI/HI Risk Assessment Past Suicidal Ideation/Attempts No Current Suicidal Ideation/Att No Past Homicidal Ideation/Att: No Current Homicidal Ideation/Attempts No Degree of Intent: None Danger To: Others, Self (gravely disabled) Gravely Disabled: Lack of Insight, Poor Impulse Control, Poor Judgment Lethality Ratin - Conclusion and Recommendations for treatment - and discharge planning Summary: pt presents as angry, irritable and difficult to engage. Pt denies SI/HI/AH/VH. Pt states she doesn't know why she is here. Reviewed with pt the importance of taking her medications and continuing treatment once discharged to maintain stable functioning.
--- NOTE | 2017-03-17 14:23 | SOCIAL WORKER PROG NOTE PSYCH ---
See Addendum Social Work Progress Note Progress Note 11:15am This medical writer met with patient. She was lying in bed, but agreeable to meeting. Patient discussed frustrations/anger about current and recent inpatient admissions adding that she is not interested in taking medications due to how they make her feel. Patient reported having a diagnosis of Bipolar d/o and felt that medications worsened how she felt. Patient reported past MJ and Cocaine use, however, denied any current use. She reported that she last used Cocaine prior to her last [facility] inpatient admission. Patient denied SI/HI/AH/VH. Patient was engaged and spontaneous in this conversation. She presented as agitated, utilizing profanities during this meeting. Patient stated that she would consider a family meeting and discuss this further with this medical writer tomorrow.
[2017-03-17 15:58] VITALS: BP 126/75
--- NOTE | 2017-03-17 16:02 | CPS PROVIDER INIT ASMT PSYCH ---
Psychiatric Admission Daycare Provider's Note Reviewed: Yes Patient Seen and Examined: Yes Identifying Information: The patient is a 27 yo WF known to me from OPS, who was admitted on 03/16/17 on a PEC from ER. 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 Mother reported that patient had been manic and up, not sleeping, for 3 days. Discharged from [facility] 03/04/17, did not show for OPS appointment 03/10/17. Urine drug screen and alcohol level were negative. Reaction to Hospitalization: "Pissed off because I never wanted to be in here in the first place." History of Present Illness Onset of Illness: Chronic, not doing well since last discharge. Reports she was started on medications at 19 yo. Circumstances Leading to Admission: Agitation. Manic/psychotic. Problem(s) Justifying Need for Admission: Agitation. Manic/psychotic. Other HPI: Patient states "this is retarded. I don't want to talk about this sh*t." Most of her verbalizations involve heavy use of profanity. States nobody trusts her and everybody has "f*cked" her. States she did not threaten her parents on purpose. States she loves them. Feels that people are threatening her family. Reports she slept despite dry throat. Appetite: "I'm hungry when I'm hungry. I eat when I need to eat." Energy: "right now, I'm f*cking bones off the wall." Case and treatment plan discussed in team meeting this morning. Staff reports that the patient took Haldol last night. She has been up since 1:30 AM. Slept- in this morning. Continues to require one-to-one sitter due to agitation. Past Psychiatric History Past Diagnosis(es)- if any: Unspecified psychotic disorder, cannabis use disorder, cocaine use disorder. Delusional disorder mixed type (jealous and persecutory) multiple episodes (F22) , r/o bipolar disorder with psychosis. Past Precipitating Factors- if any: Psychotic decompensation. Probable medication non-adherence. - Include inpatient and outpatient treatment Treatment History: OPS. Inpatient 4-5x: [facility] [place], , [facility]. History of Suicide Attempts or Gestures Denies. Substance Abuse History: Claims she quit tobacco before December. Used to drink a lot but choosing to be sober. Cocaine [facility]. Allergies: Coded Allergies: amoxicillin (UNKNOWN 02/23/17) sulfamethoxazole (From BACTRIM) (UNKNOWN 02/23/17) trimethoprim (From BACTRIM) (UNKNOWN 02/23/17) Home Med List: Not compliant. Was discharged 03/04/17 on Haldol 2 mg b.i.d. - Include any medical condition(s) that may - impact the patient's recovery/remission Past Medical History: Denied. 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 Paternal grandparents: anxiety. Substance Use: Refused to answer. Suicides: Uncooperative. Social History Living Situation: Lives with mother. Significant Relationships (family/friends): Uncooperative. Education: Uncooperative. Vocation/Occupation: Uncooperative. Legal: Uncooperative. Healthly Behaviors Screening Tobacco Screening Tobacco Use from ED Docu: Quit >30 days ago - If tobacco counseling indicated - the following topics are required. - #1 Recognizing dangerous situations. - #2 Coping Skills. - #3 Basic information about quitting. Status of Tobacco Cessation Counseling: Not Applicable Cessation Med Status Not Applicable Alcohol Screening - ETOH screen POS if BAL >=80 or Audit-C>= M4/F3 Audit-C Score from Diag Assess: 0 Blood Alcohol Level: Lab Serum Alcohol < 10.0 MG/DL 03/14/17 0154 Alcohol Use Screening Results: Neg per Audit C &/or BAL - If ETOH counseling indicated - the following topics are required. - #1 Express concern about the patient's - drinking at unhealthy levels, include informing - of national norms for moderate drinking: - men <= 14 drinks/week, max 4 drinks/occasion - women <= 7 drinks/week, max 3 drinks/occasion - #2 Providing feedback, including linking alcohol to - negative physical effects (liver injury, hypertension) - negative emotional effects (relationship problems and - depression) - negative occupational consequences (reduced work - performance) - #3 Advising the patient to abstain from alcohol or - to drink below national norms for moderate drinking - (as listed above). Status of ETOH Use Counseling: N/A B/C NO ETOH Use Metabolic Screening - Screen if on a Neuroleptic Medication - Metabolic screening should include: - Blood Pressure, BMI, Glucose or Hgb A1c, & a - Lipid profile from within the past 365 days. Metabolic Screening () Not Applicable, patient not on a neuroleptic. OR () Patient on a neuroleptic(s) . Enter below results for Hemoglobin A1C, and lipid panel if obtained during the last 365 days. BMI: 29.300 Blood Pressure: 124/74 Laboratory Results From [facility] (If applicable): [x] Lab Cholesterol 107 MG/DL 02/22/17 0120 Cholesterol/HDL Ratio 3 % 02/22/17 0120 HDL Cholesterol 37 mg/dL L 02/22/17 0120 Hemoglobin A1c 4.8 % 02/22/17 0120 LDL Cholesterol, Calc 61 mg/dL L 02/22/17 0120 Triglycerides 48 mg/dL 02/22/17 0120 Exam and Plan Mental Status Examination Ambulation Status: Ambulation is WNL. Appearance: Casually dressed. Has a stud under lip. Overweight. Attitude towards examiner: Very agitated and irritable. Psychomotor activity: There is no psychomotor agitation or retardation but patient is highly verbally agitated. Behavior: Agitated. Quality of speech: Pressured. High use of profanities. Irritable tone. Affect: Irritable/agitated. Mood: Agitated. Wants to jump out of her skin. "F*cking pissed off." Denies feeling sad. Denies feeling anxious,stating "I'm just pissed off." Patient is grandiose, stating "I have a ridiculously high IQ, was born with a high IQ." Denies feeling hopeless, helpless or worthless. States "I feel like the best M-F in the world." Denies feeling guilty. Suicidal Ideation: Denies SI. Homicidal Ideation: Denies HI but wants to fight or punch someone in the face if anyone "pisses me off." Hallucinations: Denies AH. Unclear about VH. Paranoid/Delusional Material: Patient seems paranoid. I asked about magical quintana, and the patient replied "probably do, all of it now." Difficulties with thought organization: Thinking reflects agitation and is therefore somewhat rambling. Insight: Very poor. Judgment: Very poor. Orientation: Ox3 (looked at her wristband). Cognition: Grossly intact. Memory Function: Grossly intact. Estimate of intellectual functioning: Average. Assets/Strengths Patient Identified Assets/Strengths: "I don't know right now. Rollerskating." Impression/Plan Impression and Plan: Patient is high agitated, manic/psychotic. She is resistant towards all medications. - Include all active medical diagnosis that require tx DSM 5 Diagnosis(es): Bipolar d/o, manic, with psychotic features. - Initial Tx Plan for Active Psych & Medical Conditions Treatment Plan: Stop standing Haldol 2 mg b.i.d. Prn's of Haldol, Ativan and Cogentin are available. Start Tegretol 200 mg b.i.d. Patient is too disorganized right now for a discussion of risks and benefits of Tegretol. I have asked nursing staff to give the patient a handout about Tegretol. We will check a Tegretol level on Tuesday and a repeat EKG on Tuesday (because of borderline prolonged QT). The patient is aware that Dr. Townsend is covering for me tomorrow. One-to-one sitter renewed due to agitation. - Factors that would help patient function - in a less restrictive setting. Factors: No longer agitated. Stable moods.
[2017-03-17 19:20] VITALS: BP 129/77
--- NOTE | 2017-03-18 07:45 | CP SOUTH PROGRESS NOTE PSYCH ---
Psych (Inpt) Progress Note Progress Note Vital Signs Date Time Temp Pulse Resp B/P B/P Pulse O2 O2 Flow FiO2 Mean Ox Delivery Rate 03/17 1920 97.4 80 129/77 03/17 1558 68 126/75 03/17 1110 97.5 88 124/74 03/16 1709 97.6 87 153/81 02 1703 97.6 87 113/81 03/16 1537 97.9 69 18 118/70 97 Room Air 03/16 1335 98.9 66 18 122/78 97 Room Air Patient was presented in team meeting (Nursing Staff, Group and Activity Therapists, Social Work Staff, and Psychiatrist). Team discussed the patient's treatment, progress, and aftercare plan MSE: 03/18/2017: Clarissa refused to be interviewed. She seemed to be repeating exactly what she did in her previous admission (refusing to engage in treatment or discuss symptoms or medication options). She stated that she does not want any medications, she reportedly took Tegretol yesterday, neither tired nor sleepy today, irritable and hostile. She seems alert and oriented. Unknown mood, unknown whether there are any psychotic symptoms, or thoughts of suicide or homicide Assessment: The patient is a 27-year-old single White female who admitted to [facility] on 03/16/17 on a PEC from ER. Brought to ER on a APPLICATION SUPPORT ANALYST emergency paper after mother called mobile crisis reporting that patient had been manic and up, not sleeping, for 3 days. Discharged from [facility] 03/04/17, did not show for OPS appointment 03/10/17. Urine drug screen and alcohol level were negative. Reaction to Hospitalization: "Pissed off because I never wanted to be in here in the first place." Reports she was started on medications at 19-year old. On the unit, the patient remains uncooperative and un-engaged, refusing medications, refusing to meet with social work staff, or psychiatrist. Treatment Plan Update: Continue to offer Tegretol 200 mg b.i.d. Continue inpatient psychiatric care, safety checks Q 15 minutes, Nursing Staff: continue nursing mental state assessment once a shift, educate patient about symptoms and medications, Social work staff: continue to try to engage patient in her own treatment planning/discharge planning, Continue Group Therapy, Continue Activity/Milieu therapy, Psychiatrist shall continue to attempt to evaluate the patients mental state and medications daily patient about symptoms and medications, Social work staff: continue to try to engage patient in her own treatment planning/discharge planning, Continue Group Therapy, Continue Activity/Milieu therapy, Psychiatrist shall continue to attempt to evaluate the patients mental state and medications daily Orders Procedure Date/time Status EKG 03/20 1000 Active TEGRETOL LEVEL 03/20 0600 Active MAGNESIUM 03/20 0600 Active CP South Sitter/Safety Monitor 03/17 1313 Active RAPID VIRAL INFLUENZA A 03/17 0141 Complete INIT HSP (30 MIN) 03/17 UNK Complete Nursing Misc 03/17 UNK Active Regular Diet 03/16 D Active Vital Signs 03/16 1708 Active Inpt Psych Teach/Educate 03/16 1708 Active Nutritional Intake, Monitor 03/16 1708 Active Inpt Psych Auricular Acupunctu 03/16 1708 Active URINE 03/16 1513 Complete Patient Data - inpatient psych 03/16 1444 Active Admit to inpatient psych 03/16 1444 Active Admit to inpatient 03/16 1407 Active Continuous Observation Monitor 03/16 0249 Complete Vital Signs 03/16 UNK Complete Nursing Misc 03/16 UNK Active INPT Psych Sitter 03/16 UNK Active CP South Sitter/Safety Monitor 03/16 UNK Active Alternative Nursing Therapy 03/16 UNK Complete Activity/Ambulation 03/16 UNK Complete Intake & Output 03/13 2305 Complete
[2017-03-18 08:08] VITALS: BP 134/77
[2017-03-18 12:04] VITALS: BP 138/77
[2017-03-18 15:36] VITALS: BP 132/70
--- NOTE | 2017-03-18 17:29 | SOCIAL WORKER PROG NOTE PSYCH ---
Social Work Progress Note Progress Note 11:55am This tech writer met with patient. She presented as cooperative and spontaneous during the discussion. She was pacing back and forth across the room. Patient appeared less agitated than yesterday's meeting and did not use as much profanity. Patient stated that she is taking her medications and feels that they are helpful. She discussed struggling to trust the psychiatrist, but still willing to meet with him daily. Patient began discussing the need to juggle oranges to manage her anxiety. She stated that she does not like to eat oranges , rather finds juggling them helpful in managing her anxiety. Patient stated that she was upset that nursing staff would not allow her to do so. This tech writer and patient discussed other strategies to manage her anxiety.
[2017-03-18 20:00] VITALS: BP 132/80
--- NOTE | 2017-03-19 09:05 | CP SOUTH PROGRESS NOTE PSYCH ---
Psych (Inpt) Progress Note Progress Note Include the following elements, when applicable: Involvement in the active treatment of the patient with behavioral observations of the patient and the patient's response to the treatment. Review of the ongoing treatment process in the context of the treatment plan. Indication of how multi-disciplinary staff members are carrying out the treatment plan. Plans for future interventions and recommendations for revision of the treatment plan. Liaison with other physicians/providers. Progress Note: SUBJECTIVE: Patient sitting in lunchroom with peers, appearing somewhat sedated. Patient asked what kind of doctor story writer was and then stated "I don't want to talk to no psychiatrist." Patient stated she will only take Tegretol and nothing else, refused to speak further. OBJECTIVE: Overnight, patient slept and intervals, eating every time she got out of bed. Patient slept approximately 5.5 hours. Patient quite agitated at multiple times today, shouting and swearing at staff and peers. Per nursing, patient has been doing well after she receives Haldol, however patient has been much better taking standing meds and agitation prn's. VSS. Current Medications Sig/Anjelica Start time Last Medication Dose Route Stop Time Status Admin Acetaminophen 650 MG Q6P PRN 03/16 1445 AC 03/17 PO 0129 Al Hydroxide/Mg 30 ML Q4-6 PRN PRN 03/16 1445 AC Hydroxide PO Benzocaine/Menthol 1 HSAVONNE Q2P PRN 03/17 0145 AC 03/17 PO 0228 Benztropine Mesylate 1 MG Q6P PRN 03/16 1445 AC PO Benztropine Mesylate 1 MG Q6P PRN 03/16 1445 AC IM Carbamazepine 200 MG BID 03/17 1205 AC 03/19 PO 0859 Gabapentin 300 MG Q6P PRN 03/16 1500 AC 03/18 PO 1333 Haloperidol 5 MG Q6P PRN 03/16 1445 AC PO Haloperidol 5 MG Q6P PRN 03/16 1445 AC IM Lorazepam 2 MG Q6P PRN 03/16 1445 AC IM Magnesium Hydroxide 30 ML AT BEDTIME PRN 03/16 1445 AC PO Trazodone HCl 50 MG AT BEDTIME NEED.. 03/16 1445 AC PO Vital Signs Date Time Temp Pulse Resp B/P B/P Pulse O2 O2 Flow FiO2 Mean Ox Delivery Rate 03/18 1999 98.0 87 132/80 02/09 1536 76 132/70 03/18 1204 82 18 138/77 MSE: GENERAL: Seated in lunchroom, appearing sedated, minimal eye contact, poorly groomed, no apparent distress SPEECH: In brief bursts MOTOR: No tics, tremors, stereotypy, or abnormal movements MOOD: (refused to answer) AFFECT: Aloof, irritable, constricted, labile, poorly related THOUGHT PROCESS: Linear, perseverative THOUGHT CONTENT: Unable to assess COGNITION: Appeared impaired JUDGMENT: Poor INSIGHT: Poor ASSESSMENT: The patient is a 27-year-old single White female who admitted to [facility] on 03/16/17 on a PEC from ER. Brought to ER on a [employer] emergency paper after mother called mobile crisis reporting that patient had been manic and up, not sleeping, for 3 days. Discharged from [facility] 03/04/17, did not show for OPS appointment 03/10/17. Urine drug screen and alcohol level were negative. Today, patient has had several angry outbursts, security almost called on at least 2 occasions but then patient agreed to go to room and take prn's with improvement after Haldol. At this time patient continues to refuse to engage with resource engineer. PLAN: -maintain safety, vs tid, q15min checks -continue to offer meds -Adding Haldol 5 mg and Cogentin 1 mg po BID since patient has been better at taking standing medications but refusing prn's once agitated, plan discussed with nursing staff -continue plan PLAN: -maintain safety, vs tid, q15min checks -continue meds -continue plan
[2017-03-19 11:57] VITALS: BP 138/72
[2017-03-19 15:52] VITALS: BP 128/70
[2017-03-19 19:55] VITALS: BP 138/80
--- NOTE | 2017-03-20 00:11 | CP SOUTH PROGRESS NOTE PSYCH ---
Psych (Inpt) Progress Note Progress Note Progress Note: SUBJECTIVE: Patient had verbal altercation with peer on unit this afternoon, but was able to ask nurse for when necessary Haldol afterwards. Patient was accepting of Haldol and Cogentin this morning is standing medications along with carbamazepine. At this time patient is remaining in her room per nursing request complaining of feeling quite tired and wanting dessert. Denies SI/HI/ AVH/SIB or other side effects to medications. No abnormal movements noted. Patient does not want to talk at this time. OBJECTIVE: Overnight, patient slept well per nursing. Argumentative and irritable with peers and staff on unit. Improved adherence with medications. VSS. Current Medications Sig/Anjelica Start time Last Medication Dose Route Stop Time Status Admin Acetaminophen 650 MG Q6P PRN 03/16 1445 AC 03/17 PO 0129 Al Hydroxide/Mg 30 ML Q4-6 PRN PRN 03/16 1445 AC Hydroxide PO Benzocaine/Menthol 1 SHAVONNE Q2P PRN 03/17 0145 AC 03/17 PO 0228 Benztropine Mesylate 1 MG BID 03/19 2200 AC 03/19 PO 2032 Benztropine Mesylate 1 MG Q6P PRN 03/16 1445 AC 03/19 PO 1000 Benztropine Mesylate 1 MG Q6P PRN 03/16 1445 AC IM Carbamazepine 200 MG BID 03/17 1205 AC 03/19 PO 2123 Gabapentin 300 MG Q6P PRN 03/16 1500 AC 03/18 PO 1333 Haloperidol 5 MG BID 03/19 2200 AC 03/19 PO 2033 Haloperidol 5 MG Q6P PRN 03/16 1445 AC 03/19 PO 1000 Haloperidol 5 MG Q6P PRN 03/16 1445 AC IM Lorazepam 2 MG Q6P PRN 03/16 1445 AC IM Magnesium Hydroxide 30 ML AT BEDTIME PRN 03/16 1445 AC PO Trazodone HCl 50 MG AT BEDTIME NEED.. 03/16 1445 AC PO Laboratory Tests 03/20/17 0713: Magnesium 1.6, Carbamazepine 9.3 Vital Signs Date Time Temp Pulse Resp B/P B/P Pulse O2 O2 Flow FiO2 Mean Ox Delivery Rate 03/195 98.6 108 138/80 03/19 1552 98 128/70 03/19 1157 85 138/72 MSE: GENERAL: Seated in lunchroom, appearing sedated, minimal eye contact, poorly groomed, no apparent distress SPEECH: In brief bursts MOTOR: No tics, tremors, stereotypy, or abnormal movements MOOD: (refused to answer) AFFECT: Aloof, irritable, constricted, labile, poorly related THOUGHT PROCESS: Linear, perseverative THOUGHT CONTENT: Unable to assess COGNITION: Appeared impaired JUDGMENT: Poor INSIGHT: Poor ASSESSMENT: The patient is a 27-year-old single White female who admitted to [facility] on 03/16/17 on a PEC from ER. Brought to ER on a RN [employer] emergency paper after mother called mobile crisis reporting that patient had been manic and up, not sleeping, for 3 days. Discharged from [facility] 03/04/17, did not show for OPS appointment 03/10/17. Urine drug screen and alcohol level were negative. Today, patient has had several angry outbursts, security almost called on at least 2 occasions but then patient agreed to go to room and take prn's with improvement after Haldol. At this time patient continues to refuse to engage with convenience store clerk. PLAN: -maintain safety, vs tid, q15min checks -continue med above -Carbamazepine level 9.3, within therapeutic range -Mg level 1.6, will order Mg repletion BID today and tomorrow, recheck Mg level on 03/22 (ordered) -continue plan
[2017-03-20 08:49] VITALS: BP 139/81
[2017-03-20 12:19] VITALS: BP 135/74
[2017-03-20 20:09] VITALS: BP 139/75
[2017-03-21 08:04] VITALS: BP 136/81
--- NOTE | 2017-03-21 12:03 | CP SOUTH PROGRESS NOTE PSYCH ---
See Addendum Psych (Inpt) Progress Note Progress Note Include the following elements, when applicable: Involvement in the active treatment of the patient with behavioral observations of the patient and the patient's response to the treatment. Review of the ongoing treatment process in the context of the treatment plan. Indication of how multi-disciplinary staff members are carrying out the treatment plan. Plans for future interventions and recommendations for revision of the treatment plan. Liaison with other physicians/providers. Progress Note: Dr. Townsend's and Dr. Goldberg's notes reviewed. Case and treatment plan discussed in team meeting. Repeat magnesium level is ordered for tomorrow. Patient was restarted on standing Haldol at a dose of 5 mg b.i.d. with Cogentin 1 mg b.i.d. Lab Carbamazepine 9.3 ug/mL 03/20/17 0713 Staff reports that the patient uses foul language and is mean towards peers. Patient seen at 11:46 a.m. She was resting in bed and refused to meet with me, stating that she saw her psychologist social. Reported she never wants to talk to me again. "Don't mess with me." Affect irritable. Patient came to meet with me in the office at 11:54 a.m. Stated "I'm fine, thanks. I don't want any f*cking psych meds." Then agreed to take what is currently prescribed. Reported that peers upset her. Stated she doesn't need to be here. Affect irritable and agitated. IMPRESSION: Slow progress. Continue present treatment plan. Continues to require inpatient level of care. A family meeting with mother will likely be useful once the patient is less irritable and agitated.
[2017-03-21 12:09] VITALS: BP 129/70
--- NOTE | 2017-03-21 15:45 | SOCIAL WORKER PROG NOTE PSYCH ---
Social Work Progress Note Progress Note [facility] concurrent review entered: Member Name Member ID Member Subscriber Name Subscriber ID CRISTIN LIU [id number] 1990 CRISTIN DELEONFAUSTINOJERRY [id number] Pended Authorization # Client Authorization # Type of Request [id number] CONCURRENT Date of Admission/ Start of Services Requested From Submission Date 03/16/2017 03/21/2017 03/21/2017 Level of Service Type of Service Level of Care Type of Care INPATIENT/OC Mental Health Inpatient Inpatient Hospital - Inpatient [facility]
[2017-03-21 16:28] VITALS: BP 132/69
--- NOTE | 2017-03-21 16:31 | SOCIAL WORKER PROG NOTE PSYCH ---
Social Work Progress Note Progress Note 11am This keno writer met with patient. She described her mood as "alright, right now in the present." She stated that her mood tends to fluctuate. Patient denied SI/ HI/AH/VH. She refused to sign any GLENDY's including for her mother, explaining that she doesn't sign anything due to fears that "things will be turned around. " Patient discussed her lack of trust of treators, especially psychiatrists. She added that she is also distrustful of "the other health and social care teacher" (Aure Riddle") due to believing that she is the mother of the patient's best friend. She believes that Aure is presenting herself as someone else on this unit. Patient reports feeling tired from her medications, however, feels that the medications she is currently on is helpful. Patient was spontanesouly and actively engaged. She presents as unkempt. Per nursing, patient's ADL's are poor.
[2017-03-21 20:16] VITALS: BP 132/79
[2017-03-22 07:49] VITALS: BP 122/70
[2017-03-22 11:54] VITALS: BP 128/72
--- NOTE | 2017-03-22 13:01 | CP SOUTH PROGRESS NOTE PSYCH ---
Psych (Inpt) Progress Note Progress Note Include the following elements, when applicable: Involvement in the active treatment of the patient with behavioral observations of the patient and the patient's response to the treatment. Review of the ongoing treatment process in the context of the treatment plan. Indication of how multi-disciplinary staff members are carrying out the treatment plan. Plans for future interventions and recommendations for revision of the treatment plan. Liaison with other physicians/providers. Progress Note: Case and treatment plan discussed in team meeting. Staff reports that the patient had a visit with her father and she was tearful but they reportedly reached an understanding. Overall doing better. Patient seen at 10:40 AM. She was asleep in her room but woke up to speak with me. Appears sedated. Affect is pleasant. Not using foul language. Feels tired. States she is just exhausted. Agrees to have a family meeting. Reports mood is fine right now. Denies suicidal and homicidal ideation. Denies auditory and visual hallucinations. I asked if anyone tell to harm her, and she responded "I have no idea." I recommended Haldol Decanote to help with compliance but she refused. IMPRESSION: Slow progress. Continue present treatment plan. A family meeting will be important. Anticipate likely discharge before the weekend.
[2017-03-22 15:42] VITALS: BP 135/78
--- NOTE | 2017-03-22 16:05 | SOCIAL WORKER PROG NOTE PSYCH ---
Social Work Progress Note Progress Note This designer/writer met with patient. Patient was unsure about who she would like to invite to the family meeting (either her mother or father). Patient stated that she would be agreeable to Dr. Carreno attending "as long as he is a fly on the wall." She expressed interest in returning to [facility] for medication management with Nelly Guadarrama APRN. She stated that she is not interested in any type of therapy (i.e. individual therapy, group therapy, IOP). Patient stated that she would like to have [facility] as her discharge plan. Patient will follow up with this designer/writer when she has thought about the family meeting.
[2017-03-22 19:54] VITALS: BP 122/718
[2017-03-23 07:48] VITALS: BP 120/74
--- NOTE | 2017-03-23 10:40 | CP SOUTH PROGRESS NOTE PSYCH ---
Psych (Inpt) Progress Note Progress Note Include the following elements, when applicable: Involvement in the active treatment of the patient with behavioral observations of the patient and the patient's response to the treatment. Review of the ongoing treatment process in the context of the treatment plan. Indication of how multi-disciplinary staff members are carrying out the treatment plan. Plans for future interventions and recommendations for revision of the treatment plan. Liaison with other physicians/providers. Progress Note: Case and treatment plan discussed in team meeting. Staff reports that patient was visited by an aunt. Visit went well. Irritable at times. Peers are irritated by her. Requesting a family meeting with her father. Parents apparently are not together. We are trying to move towards possible discharge this or Tuesday. Patient seen at 10:14 AM. She was asleep in bed but woke up and spoke with me briefly. Appears sedated. States she is "tired as sh*t." Affect is irritable. Mood is tired. Denies feeling sad. Does feel annoyed. Denies suicidal ideation. When asked about homicidal ideation, she replied "I don't know." Denies auditory and visual hallucinations. Interview was cut short by the patient, as she was not very interested in speaking. IMPRESSION: Slow progress. Continue present treatment plan. Family meeting with father and a separate family meeting with mother will likely prove useful. Anticipate likely discharge before the weekend. If sedation persists, we may need to reduce Haldol dose.
[2017-03-23 12:25] VITALS: BP 134/76
[2017-03-23 15:50] VITALS: BP 124/67
--- NOTE | 2017-03-23 17:34 | SOCIAL WORKER PROG NOTE PSYCH ---
Social Work Progress Note Progress Note 10:23am This life underwriter met with patient. Patient was agreeable to returning to [facility] for medication management. She was also agreeable to a visiting nurse and meeting with a therapist for individual therapy. She signed an GLENDY for her parents and was in agreement with scheduling individual family meetings with each, separately. Patient denied SI/HI/AH/VH. Patient was encouraged to identify a routine on this unit and to avoid isolation. This life underwriter and patient discussed how a routine could be identified such as engaging in group therapy, practicing self care (ADL's). Family meetings were scheduled with her: -Mother for 03/24/17 at 1pm -Father for 03/24/17 at 10:30am
[2017-03-23 19:03] VITALS: BP 117/72
[2017-03-24 07:39] VITALS: BP 118/79
[2017-03-24 12:03] VITALS: BP 128/63
--- NOTE | 2017-03-24 12:16 | SOCIAL WORKER PROG NOTE PSYCH ---
Social Work Progress Note Progress Note Pt expressed some irritability due to missing her primary social science manager, Dr. Carreno and her father arrived for a family meeting and all parties agreed pt has made improvements and is prepared for discharge pending the meeting with her Mother at 1pm. Left a message for Mom, have not heard back. Spoke with Nelly Ayala at [facility] and she will make an intake appointment for herself and an outpatient therapist there. Samir will come to the unit today to confirm with the pt, and encourage engagement with the therapist, as pt is highly sensitive to new people and becomes paranoid. We are being supportive all long to 3encourage a safe discharge. Pt denies si/hi/ah/vh.
[2017-03-24] MEDS ORDERED: BENZTROPINE MESY1 M1 PO (13:24)
[2017-03-24] MEDS ORDERED: CARBAMAZEPINE200 M3 PO (13:24)
[2017-03-24] MEDS ORDERED: HALOPERIDOL5 MG PO (13:24)
--- NOTE | 2017-03-24 13:31 | Patient Discharge Instructions ---
Psych Discharge Inst General Discharge Information Reason for Admission: Agitation. Manic/psychotic. Psy Discharge Primary Diag+ Bipolar d/o, manic w/ psychotic features Summary Tests/Major Procedures Lab ALT 31 U/L 03/14/17 0154 AST 24 U/L 03/14/17 0154 BUN 16 mg/dL 03/14/17 0154 BUN/Creatinine Ratio 32.0 % H 03/14/17 0154 Calcium 9.3 mg/dL 03/14/17 0154 Carbon Dioxide 25 mmol/L 03/14/17 0154 Chloride 102 mmol/L 03/14/17 0154 Cholesterol 107 MG/DL 02/22/17 0120 Cholesterol/HDL Ratio 3 % 02/22/17 0120 Creatinine 0.5 mg/dL 03/14/17 0154 Estimated GFR > 60 ml/min 03/14/17 0154 Glucose 81 mg/dL 03/14/17 0154 HDL Cholesterol 37 mg/dL L 02/22/17 0120 Hemoglobin A1c 4.8 % 02/22/17 0120 LDL Cholesterol, Calc 61 mg/dL L 02/22/17 0120 Potassium 3.8 mmol/L 03/14/17 0154 Sodium 143 mmol/L 03/14/17 0154 TSH &T3 &Free T4 Intrp 1.950 uIU/mL 02/22/17 0120 Triglycerides 48 mg/dL 02/22/17 0120 Absolute Granulocytes 8.7 /CUMM H 03/14/17 0154 Absolute Monocytes 0.7 /CUMM H 03/14/17 0154 Hct 39.6 % 03/14/17 0154 Hgb 13.4 G/DL 03/14/17 0154 Plt Count 331 /CUMM 03/14/17 0154 WBC 12.0 /CUMM H 03/14/17 0154 Carbamazepine 9.3 ug/mL 03/20/17 0713 Serum Alcohol < 10.0 MG/DL 03/14/17 0154 Urine Test NEGATIVE 03/16/17 1600 EKG 03/20/17 showed sinus rhythm @ 88, slower rate since previous tracing, less T wave changes since previous tracing, normal EKG, QT 348, QTc 421. Patient : CRISTIN LIU Acct: [id number] DR: Ev BOWEN, Colby Birthdate: [birth year] Age/Sex: 27/F Unit: [id number] Loc: [facility] B5- 01 Status : ADM IN SPEC #: [id number] REYNA: 03/17/17 STATUS: COMP RECD: 03/17/[address] [facility] [address]: Delbert BOWEN, Rossy SOURCE: NASOPHARYN ENTR: 03/17/[address]: Alejandra BOWEN,Velma SPDESC: PLASTIC BOAT BUFFER Colby Carreno MD ORDERED: QUIK FLU AB Procedure Result > RAPID VIRAL INFLUENZA A/B Final 03/17/17 NEGATIVE FOR INFLUENZA A & B Note Rapid influenza diagnostic tests have low to moderate sensitivity compared to viral culture or RT-PCR. A negative result does not exclude influenza virus infection. If influenza is circulating in your community, a diagnosis of influenza should be considered based on patient's clinical presentation and empiric antiviral treatment should be considered, if indicated. FOR ER PATIENTS WHO ARE ADMITTED AND HEALTHCARE WORKERS, IF THE RAPID FLU IS NEGATIVE AND PATIENT HAS INFLUENZA LIKE ILLNESS, PLEASE CALL MICROBIOLOGY DEPT. [phone] FOR RT-PCR SENDOUT. PLEASE FOLLOW ISOLATION PRECAUTIONS FOR ALL SUSPECTED INFLUENZA CASES. Studies Pending at PR: None. Patient Instructions Contact Information Your Psychiatrist on [facility] was Colby Carreno MD * If you are experiencing an emergency related to this hospitalization, please call [phone] to contact the treating psychiatrist or the psychiatrist-on- call. * To Request a copy of your medical records, please contact the Medical Records Department at [phone]. * To request results of studies pending at the time of discharge, please call [phone]. * Continue your Medications until directed to stop by your Healthcare provider. General Medication Information Please continue to take your new medications and your continued home medications , unless otherwise indicated on your discharge medication list, or unless directed by your MD or CROZE CUTTER HELPER to stop them. Special Instructions Diet Regular Activity Normal Other Inst/Recommendations See PCP about abnormal labs above. Please take your medications. - Tobacco Use Treatment Offered Post DC Medications Offered: Not Applicable Post DC Tobacco Treatment Plan: Not Applicable - EtOH/Drug Use D/O Treatment Offered Post DC Medications Offered: NA-No EtOH/Drug Use D/O Post DC EtOH/SubAbuse [place] Plan: NA-No EtOH/Drug Use D/O Metabolic Screening () Not Applicable, patient not on a neuroleptic. OR () Patient on a neuroleptic(s) . Enter below results for Hemoglobin A1C, and lipid panel if obtained during the last 365 days. BMI: 29.300 Blood Pressure: 128/63 Laboratory Results From [facility] (If applicable): [x] Lab Cholesterol 107 MG/DL 02/22/17 0120 Cholesterol/HDL Ratio 3 % 02/22/17 0120 HDL Cholesterol 37 mg/dL L 02/22/17 0120 Hemoglobin A1c 4.8 % 02/22/17 0120 LDL Cholesterol, Calc 61 mg/dL L 02/22/17 0120 Triglycerides 48 mg/dL 02/22/17 0120 Advance Directives Does the Patient have Medical Advance Directives No/Refused further info Does Pt have Psychiatric Advance Directives? No/Refused further info Does Patient have a Designated Surrogate Decision Maker: No Information About Psychiatric Advance Directives Provided? Refused Discharge Plan Post Hospital Treatment Plan: Returning to home, mother and brother. Returning to medication management with Nelly Guadarrama APRN.
--- NOTE | 2017-03-24 13:38 | CP SOUTH PROGRESS NOTE PSYCH ---
Psych (Inpt) Progress Note Progress Note Include the following elements, when applicable: Involvement in the active treatment of the patient with behavioral observations of the patient and the patient's response to the treatment. Review of the ongoing treatment process in the context of the treatment plan. Indication of how multi-disciplinary staff members are carrying out the treatment plan. Plans for future interventions and recommendations for revision of the treatment plan. Liaison with other physicians/providers. Progress Note: Case and treatment plan discussed in team meeting. Staff reports that the patient is irritable. Family meeting with father was scheduled for 10:30 a.m. and with mother for 1 pm. Patient seen at 10:40 a.m. in family meeting with father and JOSETTE Heath. Patient's left eye was initially droopy consistent with sedation. This droop cleared as she woke up. Affect is irritable and patient uses some foul language but overall she is more measured. Father feels she is doing better. Patient is annoyed because her SW, Cece, is out sick. Feels a little angry. Denies feeling sad or worried. Reports she was sleeping and feels tired. Denies feeling hopeless, helpless, worthless or guilty. Denies active and passive SI. Denies HI, AH, VH and PI but she likely has some AHs and continues to display some paranoia, "I heard you say immaculate!" Reports her medications are fine but states she is eating and sleeping a lot. Feels ready and safe for discharge. IMPRESSION: Symptomatic but significantly improved. I joined family meeting with patient, mother and Ivana FINCH, around 1:10 pm. Mother is comfortable accepting patient home. We are working on a treatment contract with patient prior to her discharge. Plan is for discharge today to home, mother and brother with visiting nurse services and follow up with Nelly Guadarrama APRN.
--- NOTE | 2017-03-24 13:47 | SOCIAL WORKER PROG NOTE PSYCH ---
Social Work Progress Note Progress Note Mother Alix agrees to take pt home, and created an agreement to help decide whether or not Clarissa is safe and compliant in their household. Pt denies si/hi/ ah/vh. Pt states she wants to go home.
--- NOTE | 2017-03-24 13:49 | SOCIAL WORKER PROG NOTE PSYCH ---
Social Work Progress Note Faxed Referral(s) Transition of Care Documents sent: Health Summary Faxed to: [facility] Fax #: [phone] Faxed by: Ivana Chapman Date faxed: 03/24/17 Time Faxed: [phone]
--- NOTE | 2017-03-24 13:49 | DISCHARGE SUMMARY REPORT-PSYCH ---
Visit Information Visit Dates/Diagnosis' Admission Date: 03/16/17 Discharge Date: 03/24/17 Reason for Admission: Agitation. Manic/psychotic. Psy Discharge Primary Diag: Bipolar d/o, manic w/ psychotic features Hospital Course Significant Lab Findings: Lab ALT 31 U/L 03/14/17 0154 AST 24 U/L 03/14/17 0154 BUN 16 mg/dL 03/14/17 0154 BUN/Creatinine Ratio 32.0 % H 03/14/17 0154 Calcium 9.3 mg/dL 03/14/17 0154 Carbon Dioxide 25 mmol/L 03/14/17 0154 Chloride 102 mmol/L 03/14/17 0154 Cholesterol 107 MG/DL 02/22/17 0120 Cholesterol/HDL Ratio 3 % 02/22/17 0120 Creatinine 0.5 mg/dL 03/14/17 0154 Estimated GFR > 60 ml/min 03/14/17 0154 Glucose 81 mg/dL 03/14/17 0154 HDL Cholesterol 37 mg/dL L 02/22/17 0120 Hemoglobin A1c 4.8 % 02/22/17 0120 LDL Cholesterol, Calc 61 mg/dL L 02/22/17 0120 Potassium 3.8 mmol/L 03/14/17 0154 Sodium 143 mmol/L 03/14/17 0154 TSH &T3 &Free T4 Intrp 1.950 uIU/mL 02/22/17 0120 Triglycerides 48 mg/dL 02/22/17 0120 Absolute Granulocytes 8.7 /CUMM H 03/14/17 0154 Absolute Monocytes 0.7 /CUMM H 03/14/17 0154 Hct 39.6 % 03/14/17 0154 Hgb 13.4 G/DL 03/14/17 0154 Plt Count 331 /CUMM 03/14/17 0154 WBC 12.0 /CUMM H 03/14/17 0154 Carbamazepine 9.3 ug/mL 03/20/17 0713 Serum Alcohol < 10.0 MG/DL 03/14/17 0154 Urine Test NEGATIVE 03/16/17 1600 EKG 03/20/17 showed sinus rhythm @ 88, slower rate since previous tracing, less T wave changes since previous tracing, normal EKG, QT 348, QTc 421. Patient : CRISTIN LIU Acct: [id number] DR: ZiColby sommers MD Birthdate: [birth year] Age/Sex: 27/F Unit: [id number] Loc: [place] [address] Status : ADM IN SPEC #: [id number] REYNA: 03/17/17 STATUS: COMP RECD: 03/17/[address] [facility] [address]: Del[facility]OWEN, [facility] SOURCE: NASOPHARYN ENTR: 03/17/17-[address]: Alejandra BOWEN,Velma SPDESC: FORENSIC NURSE Colby Carreno MD ORDERED: QUIK FLU AB Procedure Result > RAPID VIRAL INFLUENZA A/B Final 03/17/17 NEGATIVE FOR INFLUENZA A & B Note Rapid influenza diagnostic tests have low to moderate sensitivity compared to viral culture or RT-PCR. A negative result does not exclude influenza virus infection. If influenza is circulating in your community, a diagnosis of influenza should be considered based on patient's clinical presentation and empiric antiviral treatment should be considered, if indicated. FOR ER PATIENTS WHO ARE ADMITTED AND HEALTHCARE WORKERS, IF THE RAPID FLU IS NEGATIVE AND PATIENT HAS INFLUENZA LIKE ILLNESS, PLEASE CALL MICROBIOLOGY DEPT. [phone] FOR RT-PCR SENDOUT. PLEASE FOLLOW ISOLATION PRECAUTIONS FOR ALL SUSPECTED INFLUENZA CASES. Course Complications: None. Consultations: Patient was seen for admission H&P by Dr. Mandujano, who noted: "27 yo F with h/o anxiety, bipolar disorder, no medical problems, recently discharged after being treated for psychosis/ og, is admitted to Inpatient psychiatry unit for management of psychosis and possible schizophrenia. - For her sore throat - will check a flu swab and give her symptomatic treatment with chlorseptic lozenges. - Continue management of psychosis as per primary team. - DVT prophylaxis - low risk, early ambulation. Please re-consult medicine for any issues" Allergies: Coded Allergies: amoxicillin (UNKNOWN 02/23/17) sulfamethoxazole (From BACTRIM) (UNKNOWN 02/23/17) trimethoprim (From BACTRIM) (UNKNOWN 02/23/17) Hospital Course/TX Response: The patient was monitored on the unit for safety, psychosis and mood disorder. She frequently displayed verbal agitation with foul language. She was highly irritable. Initiatially Haldol 2 mg b.i.d. was continued. It was then stopped and Tegretol was added. Haldol was then restarted at 5 mg b.i.d. and Cogentin 1 mg b.i.d was added. Patient refused recommendation for Haldol decanoate. Irritability has diminished as has use of foul language. Paranoia persists and patient likely has AHs but denies it. Progress note from date of discharge, 03/24/17: Case and treatment plan discussed in team meeting. Staff reports that the patient is irritable. Family meeting with father was scheduled for 10:30 a.m. and with mother for 1 pm. Patient seen at 10:40 a.m. in family meeting with father and JOSETTE Heath. Patient's left eye was initially droopy consistent with sedation. This droop cleared as she woke up. Affect is irritable and patient uses some foul language but overall she is more measured. Father feels she is doing better. Patient is annoyed because her SW, Cece, is out sick. Feels a little angry. Denies feeling sad or worried. Reports she was sleeping and feels tired. Denies feeling hopeless, helpless, worthless or guilty. Denies active and passive SI. Denies HI, AH, VH and PI but she likely has some AHs and continues to display some paranoia, "I heard you say immaculate!" Reports her medications are fine but states she is eating and sleeping a lot. Feels ready and safe for discharge. IMPRESSION: Symptomatic but significantly improved. I joined family meeting with patient, mother and Ivana FINCH, around 1:10 pm. Mother is comfortable accepting patient home. We are working on a treatment contract with patient prior to her discharge. Plan is for discharge today to home, mother and brother with visiting nurse services and follow up with Nelly Guadarrama APRN. Discharge HBIPS - Tobacco Use Treatment Offered Post DC Medications Offered: Not Applicable Post DC Tobacco Treatment Plan: Not Applicable - EtOH/Drug Use D/O Treatment Offered Post DC Medications Offered: NA-No EtOH/Drug Use D/O Post DC EtOH/SubAbuse TX Plan: NA-No EtOH/Drug Use D/O Metabolic Screening - Screen if on a Neuroleptic Medication - Metabolic screening should include: - Blood Pressure, BMI, Glucose or Hgb A1c, & a - Lipid profile from within the past 365 days. Metabolic Screening () Not Applicable, patient not on a neuroleptic. OR () Patient on a neuroleptic(s) . Enter below results for Hemoglobin A1C, and lipid panel if obtained during the last 365 days. BMI: 29.300 Blood Pressure: 128/63 Laboratory Results From [facility] (If applicable): [x] Lab Cholesterol 107 MG/DL 02/22/17 0120 Cholesterol/HDL Ratio 3 % 02/22/17 0120 HDL Cholesterol 37 mg/dL L 02/22/17 0120 Hemoglobin A1c 4.8 % 02/22/17 012 LDL Cholesterol, Calc 61 mg/dL L 02/22/17 0120 Triglycerides 48 mg/dL 02/22/17 0120 Discharge Instructions General Discharge Information Multiple Neuroleptics: ([x]) Not Applicable OR Document below three failed attempts at monotherapy, or a plan to taper to monotherapy, or augmentation of Clozapine. () Discharge Diet Regular Discharge Activity Normal DC Disposition: Returning to home, mother and brother. Prescriptions Stop taking the following medications: Haloperidol (Haloperidol) 2 MG TABLET ORAL TWICE DAILY Qty = 30 Start taking the following new medications: Carbamazepine (Carbamazepine) 200 MG TABLET 200 Milligram ORAL TWICE DAILY Qty = 28 No Refills Instructions: NOTE: Tegretol can make control pills, patches and injectns ineffective for control purposes. Comments: Last Taken:03/24/17 Time:0900 Haloperidol (Haloperidol) 5 MG TABLET 5 Milligram ORAL TWICE DAILY Qty = 28 No Refills Comments: Last Taken:03/24/17 Time:0900 Benztropine Mesylate (Benztropine Mesylate) 1 MG TABLET 1 Milligram ORAL TWICE DAILY Qty = 28 No Refills Comments: Last Taken:03/24/17 Time:0900 Other Inst/Recommendations See PCP about abnormal labs above. Please take your medications. Studies Pending at Discharge None. Copies To: Nelly Guadarrama APRN
--- NOTE | 2017-03-24 13:51 | SOCIAL WORKER PROG NOTE PSYCH ---
Social Work Progress Note Faxed Referral(s) Referred To: [facility] Transition of Care Documents sent: W10 Faxed to: [facility] Fax #: [phone] Faxed by: Ivana Chapman Date faxed: 03/24/17 Time Faxed: [phone]
--- NOTE | 2017-03-25 18:13 | SOCIAL WORKER PROG NOTE PSYCH ---
Social Work Progress Note Progress Note 11:53am Ana Luisa from [facility] (visiting nurse services) contacted this communications writer requesting the W10. This communications writer confirmed that the W10 had already been faxed via two separate fax confirmation pages in the patient's chart. Ana Luisa was contacted to confirm the fax number, which were confirmed to be correct on the confirmation pages. She stated that it was no longer needed as the patient's mother had copies and was able to provide the visiting nurse with the information. Ana Luisa stated that services would begin this afternoon and that no additional information was needed at this time.
== END 2017-03-24 14:37 | DRG 753 ==
LOC: ERH 22:48 → ERHI 03-16 14:07 → CP SOUTH 03-16 14:07 → ENTRNSPT 03-16 16:39 → EDTRNSPTSTS 03-16 16:46 → CMPTRNSPT 03-16 17:00 → CP SOUTH 03-16 17:01
PROVIDERS: Pediatrics
DX: F31.2 Bipolar disorder, current episode manic severe with psychotic features (principal)
CPT/HCPCS: 36415; 80307; 81025; 87804; 87804-59; 93005; 93010; 96372; G0463; G0480; J0515; J1630